=== PATIENT | male | born 1935 | race Caucasian/White ===

== ENCOUNTER 2022-10-15 23:58 | Outpatient (CLI) | payer MEDICARE, BC, SELFPAY | END 2022-10-15 23:59 | disposition home or self-care (01) | PROVIDERS: PCP Family Medicine; Visit Provider Family Medicine | DX: I95.9 Hypotension, unspecified (principal) | CPT/HCPCS: A0998 ==

== ENCOUNTER 2023-08-19 10:00 | Outpatient (RCR) | payer MEDICARE, BC, SELFPAY | END 2023-12-17 23:59 | disposition home or self-care (01) | PROVIDERS: PCP Family Medicine; Visit Provider Family Medicine | DX: M51.36 Other intervertebral disc degeneration, lumbar region (principal); M16.11 Unilateral primary osteoarthritis, right hip; Z51.89 Encounter for other specified aftercare | CPT/HCPCS: 97110; 97140; 97162 ==

== ENCOUNTER 2024-03-14 08:42 | Outpatient (CLI) | payer MEDICARE, BC, SELFPAY ==
--- OUTSIDE RECORDS SUMMARY | 2024-03-19 07:30 | XMS_ITS | Continuity of Care Document ---
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 2) Encounters from the Department of [facility] facilities going back up to 280 months. Location Location Details Encounter Type Encounter Number Reason For Visit Attending Provider ADM Date DC Date Status Disposition Source [place] [facility] Outpatient Encounter [id number] 10/29 [facility] [place] [facility] Outpatient Encounter [id number] 12/02 [facility]
--- OUTSIDE RECORDS SUMMARY | 2024-03-19 07:31 | XMS_ITS | Clinical Summary ---
Author Organization [facility] Address [place], [place] [address] Care Team Providers Care Legal Project Manager Name Role Phone PrasanthHaydeMichelle RIGGER SUPERVISOR Unavailable [phone] Lloyd Barry MD Primary Care Provider [phone] Allergies Active Allergy Reactions Criticality Noted Date Comments Codeine Constipation Low 12/21/2012 Medications Medication Sig Dispensed Refills Start Date End Date Status blood-glucose meter (ONE Red Rover SYSTEM)Indications: Type II or unspecified type diabetes mellitus without mention of complication, not stated as uncontrolled As directed. Dispense glucose meter, test strips and lancets covered by the patient insurance. Test 3 times per day. 1 Device 0 1 Active CaneIndications:DJD (degenerative joint disease) of hip As directed. For home use. Diagnosis degenerative joint disease 715.90 Duration use 99mos 1 Device 0 2 Active bzzbsehq-fax-LD-lyc open-lutein (CENTRUM SILVER MEN) 300-600-300 mcg tab Take by mouth. Pt reports taking medication every other day 0 7 Active lancets (ONETOUCH ULTRASOFT LANCETS)Indications :Type 2 diabetes mellitus without complication, without long-term current use of insulin (HC) As directed test 1 time daily. 100 Each 3 0 Active acetaminophen (TYLENOL EXTRA STRGTH) 500 mg tablet Take 1,300 mg by mouth two times daily. Max acetaminophen dose: 4000mg in 24 hrs. 0 0 Active blood sugar diagnostic (OneTouch Ultra Test) stripIndications:Ty pe 2 diabetes mellitus without complication, without long-term current use of insulin (HC) Dispense item covered by pt ins. 250.00 NIDDM type II - Test 1 time/day 100 Each 3 3 Active omeprazole (PRILOSEC) 20 mg Delayed-Release capsuleIndications: Chronic GERD Take 1 Capsule (20 mg) by mouth two times daily before meals. 180 Capsule 3 4 Active metoprolol succinate (TOPROL XL) 25 mg Sustained-Release tabletIndications:H TN (hypertension) Take 1 Tablet (25 mg) by mouth once daily. Wait until they call for this. 90 Tablet 3 4 Active allopurinoL (ZYLOPRIM) 300 mg tabletIndications:G out, unspecified cause, unspecified chronicity, unspecified site Take 1 Tablet (300 mg) by mouth once daily. 90 Tablet 3 4 Active atorvastatin (LIPITOR) 40 mg tabletIndications:O ther hyperlipidemia Take 1 Tablet (40 mg) by mouth once daily. 90 Tablet 3 4 Active finasteride (PROSCAR) 5 mg tabletIndications:B enign prostatic hyperplasia, unspecified whether lower urinary tract symptoms present Take 1 Tablet (5 mg) by mouth every morning. 90 Tablet 3 4 Active lisinopriL (PRINIVIL; ZESTRIL) 5 mg tabletIndications:H TN (hypertension) Take 1 Tablet (5 mg) by mouth once daily. 90 Tablet 3 4 Active tamsulosin (FLOMAX) 0.4 mg capsuleIndications: Essential hypertension TAKE 2 CAPSULES AT BEDTIME 180 Capsule 2 4 Active apixaban (ELIQUIS) 5 mg tabletIndications:S addle embolus of pulmonary artery with acute cor pulmonale, unspecified chronicity (HC) Take 1 Tablet (5 mg) by mouth two times daily. Eliquis 5 mg daily. 180 Tablet 4 Active apixaban (ELIQUIS) 5 mg tabletIndications:S addle embolus of pulmonary artery with acute cor pulmonale, unspecified chronicity (HC) Eliquis 5 mg daily. 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 He has been eliquis. 03/[address] Esthela Delarosa of Hematology and Oncology. It was recommended that Anatoly stay on Eliquis 5 mg daily for the rest of his life or until there is a major contraindication. 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 Anemia, unspecified 04/28/2012 Type II or unspecified type diabetes mellitus without mention of complication, not stated as uncontrolled 05/24/2008 HTN (hypertension) 05/24/2008 Overview: Updated by system to replace inactive record CAD (coronary artery disease) 05/24/2008 Mixed hyperlipidemia 05/24/2008 Encounters Date Type Department Care Team Description 03/15/2024 Refill [facility] [address] [place] [address] Lloyd Barry MD Refill Request ( Eliquis ) 02/07/2024 Orders Only [facility] Scanner 1 scan: (1-Ord) [facility], XR LUMBAR SPINE 2-3V, 02/07/2024 01/13/2024 Telephone [facility] [address] [place] [address] Brenden Aguilar, [facility] 12/22/2023 Telephone [facility] [address] [place] [address] Brenden Aguilar, [facility] from Last 3 Months Immunizations Name Administration Dates Next Due COVID-19 vaccine (KoalaDeal-Bio NTech 30mcg/0.3mL) MD LOLYV 05/21/2021,10/02/2020,09/11/2020 DT (Age < 7 years) 11/17/1999,11/12/1997 Influenza A (H1N1), Inactivated 07/23/2009 Influenza A (H1N1), Inactiva mariann (Age >=3 Years) 07/23/2009 Influenza, High-dose Inactivated 019,04/23/2018,04/22/2017,2016,04/30/2016,05/03/2012 Influenza, High-dose Quadriv alent Inactivated 03/24/2023,05/05/2022 Influenza, IIV3 (Age 6-35 mos) 04/14/2011,2009 Influenza, IIV3 (Age >=3 years) 05/05/20 13,04/30/2012,04/14/2011,2009,04/24/2009,05/23/2008,05/31/2007,1 ,05/27/2005,05/07/2004 Influenza, IIV4 05/21/2021 Pneumococcal Poly,23-Valent (Pneumovax) 04/25/2012,06/14/2002 Pneumococcal conj 13-Valent (Prevnar 13) 02/22/2015 Td (Age >=7 Years) 11/17/1999,11/12/1997 Tdap 04/25/2012,01/01/2011 Zoster (Shingrix-RZV, recombinant) 07/07/2018, Zoster (Zostavax-ZVL, live) 05/05/2013 Family History Medical History Relation Name Comments Other Brother 1 Luke lung ca at 67 Other Brother 2 Anthony tongue cancer Diabetes Father Heart Disease Father Diabetes Mother Other Mother pancreatic ca Cancer-breast Sister 1 Brittany Dementia Sister 1 Brittany Other Sister 1 Brittany liver ca Alcoholism Sister 2 Orin of this Cancer-breast Sister 3 Shannan of this d id not treat Other Son alchol abuse/ 2 006 Relation Name Status Comments Brother 1 Luke Brother 2 Anthony Father Mother Sister 1 Brittany Alive Dementia Sister 2 Orin Sister 3 Shannan Son Social History Tobacco Use Types Packs/Day Years Used Date Smoking Tobacco: Former Cigarettes 1 54 0 08/28/1948 - 09/14/2003 Passive Smoke Exposure: Past Smokeless Tobacco: Never Tobacco Cessation:Counseling Given: Not Answered Comments:stepson smokes outside Alcohol Use Standard Drinks/Week Comments Yes 2 (1 standard drink = 0.6 oz pur e alcohol) PHQ-2 Answer Date Recorded PHQ-2 TOTAL SCORE 0 09/29/2023 Social Connections Answer Date Recorded Frequency of Communication with Friends and Fami ly Not on file 03/17/2024 Alcohol Use Answer Date Recorded How often do you have a drink containing alcohol ? 3 09/29/2023 How many drinks containing a lcohol do you have on a typical day when you are drinking? 0 09/29/2023 How often do you have five or more drinks on one occasion? 0 09/29/2023 Financial Resource Strain Answer Date R ecorded Difficulty of Paying Living Expenses 3 03/16/2023 Difficulty of Paying Living Expenses Not on file 03/16/2023 Food Insecurity Answer Date Recorded Worried About Running Out of Food in the Last Ye ar 1 03/16/2023 Transportation Needs Answer Date Record ed Lack of Transportation (Medical) 1 03/16/2023 Housing Stability Answer Date Recorded Unable to Pay for Housing in the Last Year 1 03/16/2023 Sex and Gender Information Value Date Recorded Sex Assigned at Male 08/26/2020 7:29 PM DRUG CLERK Gender Identity Male 08/26/2020 7:29 PM DRUG CLERK Sexual Orientation Straight 08/26/2020 7: 29 PM DRUG CLERK Obstetrics History Last Filed Vital Signs Vital Sign Reading Time Taken Comments Blood Pressure 109/60 09/29/2023 2:31 PM DRUG CLERK Pulse 97 09/29/2023 2:31 PM DRUG CLERK Temperature 36.4 ??C (97.6 ??F) 06/30/2023 11:[address] Respiratory Rate 20 04/14/2022 10:06 AM CDT Oxygen Saturation 100% 09/29/2023 2:31 PM DRUG CLERK Inhaled Oxygen Concentration - - Weight 70.4 kg (155 lb 4.8 oz) 09/29/2023 2:31 P M DRUG CLERK Height 168 cm (5' 6.14) 09/29/2023 2:31 PM DRUG CLERK Body Mass Index 24.96 09/29/2023 2:31 PM DRUG CLERK Plan of Treatment Upcoming Encounters Date Type Department Care Team (Late st Contact Info) Description 03/29/2024 11:45 AM CDT Office Visit [facility] [address] [place] [address] Lloyd Barry MD [address] [place] [address] Health Maintenance Due Date Last Done Comments Tetanus booster 04/25/2022 04/25/2012, 03/2011, 01/01/2011, Additional history exists COVID-19 vaccine series ( season) 2023 05/21/2021, 10/02/2020, 09/11/2020 Influenza for age 65+ 03/26/2024 03/24/2023 , 05/05/2022, 05/21/2021, Additional history exists BMI (ht and wt on same day) for age 18+ 09/28/2024 09/29/2023, 09/07/2022, 08/29/2021, Additional history exists Depression screening for age 12+ 09/28/2024 09/29/2023, 09/07/2022, 08/29/2021, Additional history exists Medicare Wellness for age 65+ 09/29/2024, 09/07/2022, 08/29/2021, Additional history exists Tdap Completed 04/25/2012, 01/01/2011 Pneumococcal series for age 65+ Completed 02/22/2015, 04/25/2012, 06/14/2002 Zoster (shingles) series for age 50+ Completed 07/07/2018, 04/28/2018, 05/05/2013 Procedures Procedure Name Priority Date/Time Associated Diagnosis Comments SCAN-RADIOLOGY REPORT 02/07/2024 12:00 AM CDT from Last 3 Months Results * SCAN-RADIOLOGY REPORT (02/07/2024 12:00 AM CDT) Anatomical Region Laterality Modality Other Scanner OTHER from Last 3 Months Advance Directives Documents on File Type Date Recorded Patient Orthotic/Prosthetic Practitioner Expl anation Healthcare Directive 02/22/2018 2:33 PM HE ALTHCARE DIRECTIVE, [facility], 02/22/18 POLST 02/22/2018 2:31 PM CLAUDY ESPINOZA, 02/15/18 Care Teams Legal Project Manager Relationship Specialty Start Date End Date Lloyd Barry MD [address] [place] [address] PCP - General Family Practice 08/29/20 Michelle Rader NP Nurse Practitioner Nurse Practitioner 05/17/14
== END 2024-03-14 08:43 | disposition home or self-care (01) ==
LOC: AMB 03-19 07:29
PROVIDERS: PCP Family Medicine; Visit Provider Emergency Medicine Emergency Medical Services
DX: R07.89 Other chest pain (principal)
CPT/HCPCS: A0425; A0427

== ENCOUNTER 2024-03-14 09:26 | Emergency (ER) | payer MEDICARE, BC, SELFPAY ==
[2024-03-14] VITALS (9 sets, daily range): BP systolic 112–123; BP diastolic 57–85; PULSE 69–75; RESP 20; TEMP 36.1; O2SAT 94–100; BMI 22.6
--- NOTE | 2024-03-14 09:48 | ED.CHESTPAIN ---
HPI - Chest Pain General Chief Complaint: Chest Pain Stated Complaint: Chest pain Time Seen by Provider: 03/14/24 09:35 History of Present Illness HPI narrative: This 89-year-old male comes in because of an episode of chest pain. At the time of my visit he states he is not having any pain. This back pain began a bit more than an hour ago at approximately 8:30 a.m. He states that he was with skiing some flour to make pancakes and began to have back pain. He has a history of chronic and recurrent back pain. He stated that when this back pain flares up his legs become weak. He sat down and when he got up to ambulate he began to have chest pain. He made it to his bedroom and his brought him an aspirin and nitroglycerin. He took these and about a minute or 2 after nitroglycerin was taken his chest pain was gone. He does have a history of a myocardial infarction that occurred about a year ago. He does not have any chest pain recently with exertional activities. Today in addition to chest pain he did have some shortness of breath and nausea. There is no diaphoresis or vomiting. He is taking Eliquis but because of cost he is only taking half of the dosage that is recommended. He arrives here with normal vital signs. Related Data Home Medications ?Medication ?Instructions ?Recorded ?Confirmed allopurinol 300 mg tablet 300 mg PO DAILY 02/07/24 02/07/24 apixaban 5 mg tablet (Eliquis) 2.5 mg PO BID 02/07/24 02/07/24 atorvastatin 40 mg tablet 40 mg PO DAILY 02/07/24 02/07/24 finasteride 5 mg tablet 5 mg PO DAILY 02/07/24 02/07/24 lisinopril 5 mg tablet 5 mg PO DAILY 02/07/24 02/07/24 metoprolol succinate 25 mg 25 mg PO DAILY 02/07/24 02/07/24 tablet,extended release 24 hr omeprazole 20 mg capsule,delayed 20 mg PO BID 02/07/24 02/07/24 release tamsulosin 0.4 mg capsule 0.8 mg PO DAILY 02/07/24 02/07/24 Allergies Allergy/AdvReac Type Severity Reaction Status Date / Time No Known Drug Allergies Allergy Verified 03/14/24 09:32 Review of Systems Status of ROS Reports: 10 or more systems reviewed and unremarkable except as noted in History and below Narrative Constitutional: No fevers, no weight gain or loss. Eyes: No discharge. No vision changes. HENT: No congestion, no sore throat, no ear pain. Cardiovascular: No palpitations. Chest pain as described above. Respiratory: No shortness of breath, no wheezes, no cough. Gastrointestinal: No abdominal pain, no vomiting, no diarrhea. Genitourinary: No dysuria, no hematuria. Musculoskeletal: Normal range of motion. Chronic back pain with an acute flare up. Skin: No rashes, no pruritis. Neurological: No dizziness, weakness, sensory change, speech change. Endo/Heme/Allergies: No bruising or bleeding. No polydipsia. Pysch: no suicidality, no anxiety, no insomnia. All other systems reviewed and are negative. [facility] Medical History (Updated 03/14/24 @ 12:42 by Pola Cardenas MD) Pulmonary edema ?J81.1 - Chronic pulmonary edema (ICD-10) Social History Smoking Status: Never smoker Do you use any of these nicotine containing products: None How often do you have a drink containing alcohol: never AUDIT-C Alcohol total score: 0 Non-prescribed substance use: denies use Exam Narrative Exam Narrative: Constitutional: Well-developed, well-nourished, no acute distress. HEENT: Normocephalic, atraumatic. Neck: Normal range of motion. Nontender. Supple. Heart: Regular. No murmurs. Normal rate. Intact distal pulses. Lungs: Clear to auscultation. No chest discomfort. No wheezes, rhonchi, or rales. Abdomen: Normal bowel sounds. Nontender. No rebound tenderness. Genitalia: Deferred. Back: No midline tenderness. Normal range of motion. Extremities: Normal range of motion. No injury. Skin: Intact. No rash. Warm. No erythema or pallor. Neurologic: No altered sensation. No weakness. Alert and oriented. Psychiatric: No suicidality. No anxiety or depression. No insomnia. Nursing notes and vitals signs are reviewed. Const Vital Signs, click to edit/add: Vital Signs - 24 hr 03/14/24 09:28 03/14/24 09:35 03/14/24 09:45 Temperature 97 F L Pulse Rate 69 74 Pulse Rate [Apical] 75 Respiratory Rate 20 Blood Pressure Blood Pressure [Left Upper Arm] 123/57 L Pulse Oximetry 98 99 100 Oxygen Delivery Method Room Air 03/14/24 10:00 03/14/24 10:15 03/14/24 10:30 Temperature Pulse Rate 69 69 69 Pulse Rate [Apical] Respiratory Rate Blood Pressure Blood Pressure [Left Upper Arm] Pulse Oximetry 94 100 98 Oxygen Delivery Method 03/14/24 10:45 03/14/24 10:48 03/14/24 11:00 Temperature Pulse Rate 71 70 74 Pulse Rate [Apical] Respiratory Rate Blood Pressure 112/85 Blood Pressure [Left Upper Arm] Pulse Oximetry 99 98 99 Oxygen Delivery Method Course Vital Signs Vital signs: Initial Vital Signs Temperature 97 F L 03/14/24 09:28 Temperature Source Temporal Artery Scan 03/14/24 09:28 Pulse Rate 75 03/14/24 09:28 Pulse Rhythm Regular 03/14/24 09:28 Respiratory Rate 20 03/14/24 09:28 Blood Pressure 123/57 L 03/14/24 09:28 Blood Pressure Mean 79 03/14/24 09:28 Blood Pressure Position Semi-Fowlers 03/14/24 09:28 Pulse Oximetry 98 03/14/24 09:28 Oxygen Delivery Method Room Air 03/14/24 09:28 Vital Signs Temperature 97 F L 03/14/24 09:28 Pulse Rate 75 03/14/24 09:28 Respiratory Rate 20 03/14/24 09:28 Blood Pressure 123/57 L 03/14/24 09:28 Pulse Oximetry 98 03/14/24 09:28 Oxygen Delivery Method Room Air 03/14/24 09:28 Temperature 97 F L 03/14/24 09:28 Pulse Rate 74 03/14/24 11:00 Respiratory Rate 20 03/14/24 09:28 Blood Pressure 112/85 03/14/24 10:48 Pulse Oximetry 99 03/14/24 11:00 Oxygen Delivery Method Room Air 03/14/24 09:28 MDM - Chest Pain MDM Narrative Medical decision making narrative: This patient comes in reporting an episode of back pain that was followed by chest discomfort as described above. EKG here shows no specific ST or T-wave abnormalities. Additionally troponin returns at 0 initially. Repeat troponin about 3-1/2 hours after the pain occurred also returns at 0. This patient seems to have reasonable exercise tolerance but does have a history of a myocardial infarction that occurred about a year ago or so. Today his episode of chest pain occurred after having back pain which is chronic for him and did not involve any particular significant physical activity. This patient is okay to be discharged home. He has been taking half of his recommended dose for of Eliquis because he says it is an expensive medication. I encouraged him to take it as prescribed and he agrees to do so now. He is encouraged to follow-up with his primary physician and return if worsening. Lab Data Labs: Lab Results 03/14/24 03/14/24 03/14/24 Range/Units 09:47 09:57 11:47 WBC 6.30 (4.50-11.00) K/uL RBC 3.09 L (4.30-5.90) m/uL Hgb 9.2 L (13.5-17.5) gm/dL Hct 28.6 L (37.0-53.0) % MCV 93 (80-100) fL MCH 30 (26-34) pg MCHC 32 (32-36) gm/dL RDW Coeff of Skylar 15.9 H (11.5-15.5) % Plt Count 228 (140-440) K/uL Neut % (Auto) 62.4 (42.0-72.0) % Lymph % (Auto) 24.1 (20-44) % Dickinson % (Auto) 9.4 (0.0-11.0) % Eos % (Auto) 3.3 (0.0-7.0) % Baso % (Auto) 0.6 (0.0-3.0) % Neut # (Auto) 3.93 (1.7-7.0) K/uL Lymph # (Auto) 1.52 (0.90-2.90) K/uL Dickinson # (Auto) 0.60 (0.00-0.90) K/UL Eos # (Auto) 0.21 (0.00-0.50) K/uL Baso # (Auto) 0.04 (0.00-0.30) K/uL Abs Immat Gran (auto) 0.01 (0.00-0.30) K/uL Imm/Tot Granulo (auto) 0.2 % Sodium 135 (135-149) mmol/L Potassium 4.0 (3.6-5.1) mmol/L Chloride 103 (96-114) mmol/L Carbon Dioxide 24 (20-32) mmol/L Anion Gap 8 (7-15) mEq/L BUN 16 (7-30) mg/dL Creatinine 1.0 (0.5-1.5) mg/dL Estimated Creat Clear 45.86 Estimated GFR 72 ml/min Glucose 115 (60-115) mg/dL Calcium 9.5 (8.4-10.6) mg/dL POC Troponin I 0.00 L 0.00 L (0.01-0.04) ng/ml ECG Data Attestation: I personally reviewed and interpreted this ECG as follows: Interpretation: Normal sinus rhythm. Rate is 78 beats per minute. There is a right bundle branch block. Biphasic T-waves in the anterior leads. Discharge Plan Discharge Clinical Impression: Atypical chest pain Patient Disposition: Home w/ Parent or Adult Condition: Improved Additional Instructions: Continue current plans. Follow up with primary physician. Return if symptoms are recurrent or worsening. Prescriptions: No Action finasteride 5 mg tablet 5 mg PO DAILY lisinopril 5 mg tablet 5 mg PO DAILY atorvastatin 40 mg tablet 40 mg PO DAILY Eliquis 5 mg tablet 2.5 mg PO BID metoprolol succinate 25 mg tablet extended release 24 hr 25 mg PO DAILY allopurinol 300 mg tablet 300 mg PO DAILY tamsulosin 0.4 mg capsule 0.8 mg PO DAILY omeprazole 20 mg capsule,delayed release(DR/EC) 20 mg PO BID Follow Up/Referrals: Lloyd Barry MD [Primary Care Provider] - Stand Alone Forms: [address] Info Instructions
[2024-03-14 10:05] LABS: Basophils Absolute Auto 0.04 K/uL (0.00-0.30); Basophils Percent Auto 0.6 % (0.0-3.0); Eosinophils Absolute Auto 0.21 K/uL (0.00-0.50); Eosinophils Percent Auto 3.3 % (0.0-7.0); Hematocrit 28.6 % (37.0-53.0); Hemoglobin* 9.2 gm/dL (13.5-17.5); Immature Granulocytes Abs Auto 0.01 K/uL (0.00-0.30); Immature Granulocytes Pct Auto 0.2 %; Lymphocytes Absolute Auto 1.52 K/uL (0.90-2.90); Lymphocytes Percent Auto 24.1 % (20-44); Mean Corpuscular HGB Conc 32 gm/dL (32-36); Mean Corpuscular Hemoglobin 30 pg (26-34); Mean Corpuscular Volume 93 fL (80-100); Monocytes Percent Auto 9.4 % (0.0-11.0); Neutrophils Absolute Auto 3.93 K/uL (1.7-7.0); Neutrophils Percent Auto 62.4 % (42.0-72.0); Platelet Count* 228 K/uL (140-440); RDW Coefficient of Variation % 15.9 % (11.5-15.5); Red Blood Count 3.09 m/uL (4.30-5.90)
[2024-03-14 10:17] LABS: Chloride* 103 mmol/L (96-114); Slide Review Reflex No
[2024-03-14 10:18] LABS: Sodium* 135 mmol/L (135-149)
[2024-03-14 10:20] LABS: Est. Creatinine Clearance* 45.86; Estimated Glomerular Filt Rate 72 ml/min
[2024-03-14 10:21] LABS: Anion Gap 8 mEq/L (7-15); Blood Urea Nitrogen* 16 mg/dL (7-30); Calcium* 9.5 mg/dL (8.4-10.6); Carbon Dioxide* 24 mmol/L (20-32); Glucose* 115 mg/dL (60-115)
== END 2024-03-14 12:57 | disposition home or self-care (01) ==
PROVIDERS: Emergency Provider Emergency Medicine Emergency Medical Services; PCP Family Medicine
DX: R07.89 Other chest pain (principal)
CPT/HCPCS: 36415; 80048; 84484; 85025; 93005; 99284

== ENCOUNTER 2024-05-29 12:30 | Outpatient (RCR) | payer MEDICARE, BC, SELFPAY | END 2024-09-25 14:51 | disposition home or self-care (01) | PROVIDERS: PCP Family Medicine; Visit Provider Family Medicine | DX: M51.36 Other intervertebral disc degeneration, lumbar region (principal); M41.55 Other secondary scoliosis, thoracolumbar region; R26.89 Other abnormalities of gait and mobility; Z51.89 Encounter for other specified aftercare | CPT/HCPCS: 97110; 97140; 97162 ==

== ENCOUNTER 2024-09-21 10:09 | Outpatient (CLI) | payer MEDICARE, BC, SELFPAY | END 2024-09-21 10:10 | disposition home or self-care (01) | PROVIDERS: PCP Family Medicine; Visit Provider Emergency Medicine | DX: S29.9XXA Unspecified injury of thorax, initial encounter (principal); S09.90XA Unspecified injury of head, initial encounter; W10.9XXA Fall (on) (from) unspecified stairs and steps, initial encounter; Y92.008 Other place in unspecified non-institutional (private) residence as the place of occurrence of the external cause | CPT/HCPCS: A0425; A0427 ==

== ENCOUNTER 2024-09-21 11:02 | Inpatient (IN) | payer MEDICARE, BC, SELFPAY ==
[2024-09-21] VITALS (54 sets, daily range): BP systolic 96–148; BP diastolic 43–77; PULSE 81–104; RESP 10–27; TEMP 35.9–37; O2SAT 90–100; BMI 22.0
--- NOTE | 2024-09-21 11:41 | ED.FALL ---
HPI - Fall General Date Seen: 09/21/24 Chief Complaint: Fall/Minor Trauma Stated Complaint: Weakness, fall Source: patient and EMS Mode of arrival: EMS Limitations: no limitations History of Present Illness HPI Narrative: Patient is an 89-year-old male presenting via EMS after a fall. He states for the past 4 weeks he will have intermittent episodes where his legs just give out on him. He is set up to see his primary care provider this Wednesday for this issue. Has not been evaluated for it before he states. States he was walking into his house from the garage when his legs gave out causing the fall backwards from the 2nd step and hitting his head on a bracket of a table and then the cement ground. Currently he he is complaining about left flank pain and he states he thinks he broke a rib. Was given some pain medication via EMS in states that has helped. Admits to chronic hip pain and thinks it seems worse after the fall. Does states he short of breath but this has been a chronic issue since he had pulmonary edema requiring him to be airlifted to [facility] [place] 4 months ago. Does not seem any worse currently. Does admit to drinking 3-5 shots of alcohol every day. Denies any neck pain currently. Denies abdominal pain, fevers, chills. No other injuries he states. 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 Related Data Home Medications ?Medication ?Instructions ?Recorded ?Confirmed allopurinol 300 mg tablet 300 mg PO DAILY 02/07/24 09/21/24 apixaban 5 mg tablet (Eliquis) 2.5 mg PO BID 02/07/24 09/21/24 atorvastatin 40 mg tablet 40 mg PO DAILY 02/07/24 09/21/24 finasteride 5 mg tablet 5 mg PO DAILY 02/07/24 09/21/24 lisinopril 5 mg tablet 5 mg PO DAILY 02/07/24 09/21/24 metoprolol succinate 25 mg 25 mg PO DAILY 02/07/24 09/21/24 tablet,extended release 24 hr omeprazole 20 mg capsule,delayed 20 mg PO BID 02/07/24 09/21/24 release tamsulosin 0.4 mg capsule 0.8 mg PO DAILY 02/07/24 09/21/24 Allergies Allergy/AdvReac Type Severity Reaction Status Date / Time No Known Drug Allergies Allergy Verified 09/21/24 12:56 Review of Systems Status of ROS: Reports: 10 or more systems reviewed and unremarkable except as noted in History and below [facility] Medical History Pulmonary edema ?J81.1 - Chronic pulmonary edema (ICD-10) Social History Smoking Status: Former smoker Do you use any of these nicotine containing products: None How often do you have a drink containing alcohol: 4 or more times a week How many standard drinks containing alcohol do you have on a typical day: 3 or 4 How often do you have six or more drinks on one occasion: Never AUDIT-C Alcohol total score: 5 Non-prescribed substance use: denies use Exam Narrative: Exam Narrative: Const: Well-nourished, Well-developed, in mild distress Eyes: PERRL, no conjunctival injection, and symmetrical lids HENT: Atraumatic external nose and ears. Moist mucous membranes. Neck: Symmetric, trachea midline, No thyromegaly. CVS: RRR, No murmurs or gallops. Peripheral pulses 2+ and equal in all extremities RESP: Unlabored respiratory effort. Clear to auscultation bilaterally. GI: Nontender/Nondistended, No rebound or guarding. MSK:Extremities w/o deformity, Normal Active ROM, right posterior hip pain and left posterior paraspinal pain around rib 10 Skin: Warm, Dry. No rashes or lesions. Neuro: Normal Muscle tone, No focal neurological deficits. Psych: Awake, Alert, & Oriented x3. Appropriate mood and affect. Const: Vital Signs, click to edit/add: Vital Signs - 24 hr 09/21/24 10:52 09/21/24 11:03 09/21/24 11:04 Temperature 97.2 F L Pulse Rate 91 89 Pulse Rate [Right Pulse Oximeter] 94 Respiratory Rate 18 Blood Pressure 102/45 L Blood Pressure [Ri ght Upper Arm] 102/45 L Pulse Oximetry 100 93 90 Oxygen Delivery Me thod Room Air 09/21/24 11:15 09/21/24 11:15 09/21/24 11:16 Temperature Pulse Rate 100 100 98 Pulse Rate [Right Pulse Oximeter] Respiratory Rate Blood Pressure 113/54 L 113/54 L Blood Pressure [Ri ght Upper Arm] Pulse Oximetry 100 100 100 Oxygen Delivery Me thod 09/21/24 11:30 09/21/24 11:31 09/21/24 11:45 Temperature Pulse Rate 92 87 98 Pulse Rate [Right Pulse Oximeter] Respiratory Rate 23 Blood Pressure 96/43 L Blood Pressure [Ri ght Upper Arm] Pulse Oximetry 100 99 100 Oxygen Delivery Me thod 09/21/24 12:00 09/21/24 12:02 09/21/24 12:03 Temperature Pulse Rate 90 88 Pulse Rate [Right Pulse Oximeter] Respiratory Rate 15 20 19 Blood Pressure 111/59 L Blood Pressure [Ri ght Upper Arm] Pulse Oximetry 100 100 Oxygen Delivery Me thod 09/21/24 12:45 09/21/24 13:00 09/21/24 13:02 Temperature Pulse Rate 104 H 92 99 Pulse Rate [Right Pulse Oximeter] Respiratory Rate 19 15 Blood Pressure 114/53 L Blood Pressure [Ri ght Upper Arm] Pulse Oximetry 100 100 Oxygen Delivery Me thod 09/21/24 13:15 09/21/24 13:30 09/21/24 13:32 Temperature Pulse Rate 94 91 93 Pulse Rate [Right Pulse Oximeter] Respiratory Rate 27 H 12 12 Blood Pressure 126/54 L Blood Pressure [Ri ght Upper Arm] Pulse Oximetry 100 98 96 Oxygen Delivery Me thod 09/21/24 13:39 09/21/24 13:43 09/21/24 13:45 Temperature 98.1 F Pulse Rate 92 90 87 Pulse Rate [Right Pulse Oximeter] Respiratory Rate 16 15 Blood Pressure 116/47 L 116/47 L Blood Pressure [Ri ght Upper Arm] Pulse Oximetry 94 91 92 Oxygen Delivery Me thod Room Air 09/21/24 13:47 09/21/24 14:00 09/21/24 14:00 Temperature 98.0 F Pulse Rate 90 91 96 Pulse Rate [Right Pulse Oximeter] Respiratory Rate 12 16 16 Blood Pressure 107/45 L 117/51 L Blood Pressure [Ri ght Upper Arm] Pulse Oximetry 90 100 Oxygen Delivery Me thod Room Air 09/21/24 14:02 09/21/24 14:03 09/21/24 14:15 Temperature Pulse Rate 88 87 82 Pulse Rate [Right Pulse Oximeter] Respiratory Rate 13 Blood Pressure 117/51 L Blood Pressure [Ri ght Upper Arm] Pulse Oximetry 97 92 95 Oxygen Delivery Me thod 09/21/24 14:17 09/21/24 14:17 09/21/24 14:30 Temperature 98.1 F Pulse Rate 89 89 88 Pulse Rate [Right Pulse Oximeter] Respiratory Rate 16 Blood Pressure 113/52 L 113/52 L 118/55 L Blood Pressure [Ri ght Upper Arm] Pulse Oximetry 94 94 100 Oxygen Delivery Me thod Room Air 09/21/24 14:30 09/21/24 14:32 Temperature Pulse Rate 88 87 Pulse Rate [Right Pulse Oximeter] Respiratory Rate 13 18 Blood Pressure 118/55 L Blood Pressure [Ri ght Upper Arm] Pulse Oximetry 96 100 Oxygen Delivery Me thod Course Vital Signs Vital signs: Initial Vital Signs Temperature 97.2 F L 09/21/24 10:52 Temperature Source Temporal Artery Scan 09/21/24 10:52 Pulse Rate 94 09/21/24 10:52 Pulse Rhythm Regular 09/21/24 10:52 Pulse Strength 3+ Normal 09/21/24 10:52 Respiratory Rate 18 09/21/24 10:52 Blood Pressure 102/45 L 09/21/24 10:52 Blood Pressure Mean 64 L 09/21/24 10:52 Pulse Oximetry 100 09/21/24 10:52 Oxygen Delivery Method Room Air 09/21/24 10:52 Vital Signs Temperature 97.2 F L 09/21/24 10:52 Pulse Rate 94 09/21/24 10:52 Respiratory Rate 18 09/21/24 10:52 Blood Pressure 102/45 L 09/21/24 10:52 Pulse Oximetry 100 09/21/24 10:52 Oxygen Delivery Method Room Air 09/21/24 10:52 Temperature 98.1 F 09/21/24 14:30 Pulse Rate 87 09/21/24 14:32 Respiratory Rate 18 09/21/24 14:32 Blood Pressure 118/55 L 09/21/24 14:32 Pulse Oximetry 100 09/21/24 14:32 Oxygen Delivery Method Room Air 09/21/24 14:30 Medications Administered Medications: Generic Name Dose Route Start Last Admin Trade Name Freq PRN Reason Stop Dose Admin Sodium Chloride 250 ml 09/21/24 12:15 09/21/24 13:39 0.9 % Sodium Chloride 500 Ml IV 09/22/24 23:59 250 ml ONCE PRN Administration Discontinued Medications Generic Name Dose Route Start Last Admin Trade Name Luis Fernando PRN Reason Stop Dose Admin Morphine Sulfate 4 mg 09/21/24 13:02 09/21/24 13:13 Morphine 4 Mg/Ml Inj IVP 09/21/24 13:03 4 mg ONCE ONE Administration MDM - Fall MDM Narrative Medical decision making narrative: Patient is an 89-year-old male presenting after a fall. He has a pain to his right hip in left posterior ribs. Considering he is on a blood thinner his overall symptoms I will do a proctor scan to exam in his chest abdomen and pelvis along with CT his head and cervical spine. Will could be causing his weakness is pretty broad expression he considering he is admitted alcoholic. Order a COVID/flu/RSV, CBC, magnesium, CMP, EKG and troponin. His shortness of breath seems to be chronic him a concern for pulmonary embolism is low. CBC came back with a critical low hemoglobin of 4.9. It was 9.2 back in February 2024. Will do iron panels. It is a normocytic anemia. Stool occult test was ordered along with a type and screen. Iron panel showed a iron deficiency anemia. He is stool occult positive. The stool was in dark brown consistent with slight melena. I do believe he is having a chronic upper GI bleed. This is likely the cause of his symptoms. He will receive 2 units of packed red cells. CT scan of his head and neck showed no acute concerning abnormalities. CT scan of the abdomen pelvis shows an acute nondisplaced 8th rib fracture consistent with where his pain is. I spoke to the morning hospitalist and he initially recommended transfer if possible. I spoke to several hospitals in no one had available beds. I did find out we are able to do an endoscopy tomorrow at 14:30. Due to no bed availability and the patient being otherwise stable while we were able to get a DOS could be tomorrow patient will stay here in [facility]. The hospitalist accepted him for admission Lab Data Labs: Lab Results 09/21/24 09/21/24 09/21/24 Range/Units 11:33 11:35 11:58 WBC 6.07 (4.50-11.00) K/uL RBC 2.10 L (4.30-5.90) m/uL Hgb 4.9 L* (13.5-17.5) gm/dL Hct 17.2 L (37.0-53.0) % MCV 82 (80-100) fL MCH 23 L (26-34) pg MCHC 29 L (32-36) gm/dL RDW Coeff of Skylar 18.6 H (11.5-15.5) % Plt Count 309 (140-440) K/uL Neut % (Auto) 78.1 H (42.0-72.0) % Lymph % (Auto) 11.9 L (20-44) % Trimble % (Auto) 8.1 (0.0-11.0) % Eos % (Auto) 1.2 (0.0-7.0) % Baso % (Auto) 0.5 (0.0-3.0) % Neut # (Auto) 4.70 (1.7-7.0) K/uL Lymph # (Auto) 0.70 L (0.90-2.90) K/uL Trimble # (Auto) 0.50 (0.00-0.90) K/UL Eos # (Auto) 0.07 (0.00-0.50) K/uL Baso # (Auto) 0.03 (0.00-0.30) K/uL Abs Immat Gran (auto) 0.01 (0.00-0.30) K/uL Imm/Tot Granulo (auto) 0.2 % Sodium 134 L (135-149) mmol/L Potassium 4.6 (3.6-5.1) mmol/L Chloride 103 (96-114) mmol/L Carbon Dioxide 22 (20-32) mmol/L Anion Gap 9 (7-15) mEq/L BUN 23 (7-30) mg/dL Creatinine 1.0 (0.5-1.5) mg/dL Estimated Creat Clear 44.55 Estimated GFR 72 ml/min Glucose 243 H (60-115) mg/dL Calcium 8.9 (8.4-10.6) mg/dL Magnesium 2.0 (1.5-2.6) mg/dL Iron 14 L (49-181) ug/dL TIBC 436 (261-462) ug/dL % Saturation 3 L (20-50) % Total Bilirubin 0.3 (0.1-1.5) mg/dL Direct Bilirubin 0.2 (0.0-0.5) mg/dL AST 17 (12-35) U/L ALT 13 (4-50) U/L Alkaline Phosphatase 86 (40-150) U/L Troponin I < 0.01 L (0.01-0.04) ng/mL Total Protein 5.5 L (6.0-8.3) g/dL Albumin 3.7 (3.3-5.0) g/dL Stool Occult Blood (Negative) SARS-CoV-2 (PCR) Negative SARS-CoV-2 (Negative) Influenza Type A (PCR) Negative PCR FLU A (Negative) Influenza Type B (PCR) Negative PCR FLU B (Negative) RSV (PCR) Negative PCR RSV (Negative) Lab Acknowledgement Test Added POC Creatinine 1.1 (0.6-1.3) mg/dl POC Troponin I 0.00 L (0.01-0.04) ng/ml Blood Type O Positive Antibody Screen NEGATIVE Crossmatch (AHG) See Detail 09/21/24 Range/Units 12:10 WBC (4.50-11.00) K/uL RBC (4.30-5.90) m/uL Hgb (13.5-17.5) gm/dL Hct (37.0-53.0) % MCV (80-100) fL MCH (26-34) pg MCHC (32-36) gm/dL RDW Coeff of Skylar (11.5-15.5) % Plt Count (140-440) K/uL Neut % (Auto) (42.0-72.0) % Lymph % (Auto) (20-44) % Trimble % (Auto) (0.0-11.0) % Eos % (Auto) (0.0-7.0) % Baso % (Auto) (0.0-3.0) % Neut # (Auto) (1.7-7.0) K/uL Lymph # (Auto) (0.90-2.90) K/uL Trimble # (Auto) (0.00-0.90) K/UL Eos # (Auto) (0.00-0.50) K/uL Baso # (Auto) (0.00-0.30) K/uL Abs Immat Gran (auto) (0.00-0.30) K/uL Imm/Tot Granulo (auto) % Sodium (135-149) mmol/L Potassium (3.6-5.1) mmol/L Chloride (96-114) mmol/L Carbon Dioxide (20-32) mmol/L Anion Gap (7-15) mEq/L BUN (7-30) mg/dL Creatinine (0.5-1.5) mg/dL Estimated Creat Clear Estimated GFR ml/min Glucose (60-115) mg/dL Calcium (8.4-10.6) mg/dL Magnesium (1.5-2.6) mg/dL Iron (49-181) ug/dL TIBC (261-462) ug/dL % Saturation (20-50) % Total Bilirubin (0.1-1.5) mg/dL Direct Bilirubin (0.0-0.5) mg/dL AST (12-35) U/L ALT (4-50) U/L Alkaline Phosphatase (40-150) U/L Troponin I (0.01-0.04) ng/mL Total Protein (6.0-8.3) g/dL Albumin (3.3-5.0) g/dL Stool Occult Blood Positive (Negative) SARS-CoV-2 (PCR) (Negative) Influenza Type A (PCR) (Negative) Influenza Type B (PCR) (Negative) RSV (PCR) (Negative) Lab Acknowledgement POC Creatinine (0.6-1.3) mg/dl POC Troponin I (0.01-0.04) ng/ml Blood Type Antibody Screen Crossmatch (AHG) Imaging Data CT scan head: Attestation: I have reviewed the pertinent imaging results. Radiologist's impression: 1. No intracranial bleed or mass effect. 2. Cerebral atrophy with nonspecific white matter disease, likely microangiopathy. 3. Opacified right maxillary sinus extending to the right ostiomeatal unit. This has mild convexity of the differential diagnosis includes chronic sinusitis or sinonasal polyposis. Appearance is similar to the 2019 exam. Please note that all CT scans at this facility use dose modulation, iterative reconstruction, and/or weight-based dosing when appropriate to reduce radiation dose to as low as reasonably achievable. Dictated by Herrera Krause MD @ 09/21/2024 1:07:55 PM 1. No intracranial bleed or mass effect. 2. Cerebral atrophy with nonspecific white matter disease, likely microangiopathy. 3. Opacified right maxillary sinus extending to the right ostiomeatal unit. This has mild convexity of the differential diagnosis includes chronic sinusitis or sinonasal polyposis. Appearance is similar to the 2019 exam. Please note that all CT scans at this facility use dose modulation, iterative reconstruction, and/or weight-based dosing when appropriate to reduce radiation dose to as low as reasonably achievable. Dictated by Herrera Krause MD @ 09/21/2024 1:07:[address] scan cervical spine: Attestation: I have reviewed the pertinent imaging results. Radiologist's impression: Multilevel degenerative changes without evidence of cervical spine fracture. Please note that all CT scans at this facility use dose modulation, iterative reconstruction, and/or weight-based dosing when appropriate to reduce radiation dose to as low as reasonably achievable. Dictated by Herrera Krause MD @ 09/21/2024 1:11:[address] Chest/Ab/Pelvis: Attestation: I have reviewed the pertinent imaging results. Radiologist's impression: 1. Nondisplaced acute left 8th rib fracture posterolaterally. 2. No evidence of solid organ injury or intraperitoneal hematoma. 3. Low left axillary lymphadenopathy measuring 11 millimeters. 4. Other incidental findings as detailed above. Please note that all CT scans at this facility use dose modulation, iterative reconstruction, and/or weight-based dosing when appropriate to reduce radiation dose to as low as reasonably achievable. Dictated by Herrera Krause MD @ 09/21/2024 1:22:41 PM ECG Data Attestation: I personally reviewed and interpreted this ECG as follows: Discharge Plan Discharge Clinical Impression: Weakness Anemia Qualifiers: Anemia type: iron deficiency Iron deficiency anemia type: unspecified iron deficiency Qualified Code(s): D50.9 - Iron deficiency anemia, unspecified Closed rib fracture Qualifiers: Encounter type: initial encounter Rib fracture type: single rib Laterality: left Qualified Code(s): S22.32XA - Fracture of one rib, left side, initial encounter for closed fracture Patient Disposition: Admitted As Observation Condition: Stable Prescriptions: No Action finasteride 5 mg tablet 5 mg PO DAILY lisinopril 5 mg tablet 5 mg PO DAILY atorvastatin 40 mg tablet 40 mg PO DAILY Eliquis 5 mg tablet 2.5 mg PO BID metoprolol succinate 25 mg tablet extended release 24 hr 25 mg PO DAILY allopurinol 300 mg tablet 300 mg PO DAILY tamsulosin 0.4 mg capsule 0.8 mg PO DAILY omeprazole 20 mg capsule,delayed release(DR/EC) 20 mg PO BID Follow Up/Referrals: Lloyd Barry MD [Primary Care Provider] -
[2024-09-21 11:46] LABS: Creatinine, Point-of-Care* 1.1 mg/dl (0.6-1.3)
[2024-09-21 11:48] LABS: Basophils Absolute Auto 0.03 K/uL (0.00-0.30); Basophils Percent Auto 0.5 % (0.0-3.0); Eosinophils Absolute Auto 0.07 K/uL (0.00-0.50); Eosinophils Percent Auto 1.2 % (0.0-7.0); Hematocrit 17.2 % (37.0-53.0); Immature Granulocytes Abs Auto 0.01 K/uL (0.00-0.30); Immature Granulocytes Pct Auto 0.2 %; Lymphocytes Percent Auto 11.9 % (20-44); Mean Corpuscular HGB Conc 29 gm/dL (32-36); Mean Corpuscular Hemoglobin 23 pg (26-34); Mean Corpuscular Volume 82 fL (80-100); Monocytes Percent Auto 8.1 % (0.0-11.0); Neutrophils Percent Auto 78.1 % (42.0-72.0); Platelet Count* 309 K/uL (140-440); RDW Coefficient of Variation % 18.6 % (11.5-15.5); White Blood Count* 6.07 K/uL (4.50-11.00)
[2024-09-21 11:56] LABS: Hemoglobin* 4.9 gm/dL (13.5-17.5); Slide Review Reflex No
[2024-09-21 12:11] LABS: Chloride* 103 mmol/L (96-114)
[2024-09-21 12:12] LABS: Potassium* 4.6 mmol/L (3.6-5.1); Sodium* 134 mmol/L (135-149)
[2024-09-21 12:14] LABS: Blood Urea Nitrogen* 23 mg/dL (7-30); Est. Creatinine Clearance* 44.55; Estimated Glomerular Filt Rate 72 ml/min
[2024-09-21 12:15] LABS: Anion Gap 9 mEq/L (7-15); Calcium* 8.9 mg/dL (8.4-10.6); Carbon Dioxide* 22 mmol/L (20-32); Glucose* 243 mg/dL (60-115)
[2024-09-21 12:18] LABS: Albumin* 3.7 g/dL (3.3-5.0)
[2024-09-21 12:20] LABS: Bilirubin Direct* 0.2 mg/dL (0.0-0.5); Bilirubin Total* 0.3 mg/dL (0.1-1.5); Iron* 14 ug/dL (49-181)
[2024-09-21 12:21] LABS: Alanine Aminotransferase* 13 U/L (4-50); Alkaline Phosphatase* 86 U/L (40-150); Aspartate Amino Transferase* 17 U/L (12-35); Total Protein* 5.5 g/dL (6.0-8.3)
[2024-09-21 12:22] LABS: PCR FLU A Negative PCR FLU A (Negative); PCR FLU B Negative PCR FLU B (Negative); PCR RSV Negative PCR RSV (Negative); SARS PCR* Negative SARS-CoV-2 (Negative)
[2024-09-21 12:27] LABS: Fecal Occult Blood* Positive (Negative)
[2024-09-21 12:28] LABS: Troponin I* < 0.01 ng/mL (0.01-0.04)
[2024-09-21 12:30] LABS: Percent Iron Saturation 3 % (20-50); Total Iron Binding Capacity 436 ug/dL (261-462)
[2024-09-21] MEDS: MORPHINE 4 MG/ML INJ IVP (13:13)
[2024-09-21] MEDS: 0.9 % SODIUM CHLORIDE 500 ML 250 ML IV (13:39)
--- NOTE | 2024-09-21 16:13 | PM.IMHP1 ---
Hospitalist- H&P: [facility] History of Present Illness Date Seen: 09/21/24 Chief complaint: PE Narrative: Dany Hook is a 89 year old male with history of massive pulmonary embolism on anticoagulation, heart failure, alcohol use disorder, coronary artery disease admitted through the emergency department after a fall at home. Patient reports months of progressive exertional dyspnea and leg weakness. He reports he is getting the point where his legs give out when he is just walking. He now reports he can walk about 25 ft before he has to stop to catch his breath. Today he fell and landed on his left back and head. In the emergency department he was found to have an acute left 8th rib fracture. He was also found to have a hemoglobin of 4.9 with an MCV of 82. He had Hemoccult-positive stool. In reviewing his records I see is hemoglobin on 03/14/2024 was 9.2 and his hemoglobin in August of 2023 was 11.2. He has had mild anemia for the last 5 years with hemoglobin ranging from 9.4-13.5. He does report that he has had occasions where he strains to have a bowel movement and then has bright red blood on the toilet tissue. He does not ever recall seeing bloody stools, maroon stools, melanotic stools. He is on Eliquis. He was hospitalized at [facility] for a massive saddle embolism about 5 years ago. He has a longstanding history of alcohol abuse. He tells me he drinks 1 L of whiskey per week. He has been advised to stop drinking. He reports weight loss of about 50 lb in the last year. He reports a poor appetite. His family reports he is not eating much. In reviewing past medical records I see his weight in clinic in June 2023 was 69.7 kg and in 03/29/2024 was 64.9 kg. His weight in our records was 66.2 kg in January 2024 and 63.5 kg in February of 2020 for an today his weight is 61.7 kg. That appears to be an unintentional weight loss of 8 kg since June 2023. Review of Systems Narrative: He reports urinary frequency and hesitancy. He is on Flomax and finasteride. [facility] Medical History (Updated 09/21/24 @ 17:08 by Suleiman Lafleur MD) Malnutrition ?E46 - Unspecified protein-calorie malnutrition (ICD-10) Alcohol use disorder ?F10.90 - Alcohol use, unspecified, uncomplicated (ICD-10) Pulmonary embolism, bilateral (08/29/19) ?I26.99 - Other pulmonary embolism without acute cor pulmonale (ICD-10) Sensorineural hearing loss, bilateral (04/30/21) ?H90.3 - Sensorineural hearing loss, bilateral (ICD-10) Personal history of malignant neoplasm of larynx (09/06/19) ?Z85.21 - Personal history of malignant neoplasm of larynx (ICD-10) Mixed hyperlipidemia (05/24/08) ?E78.2 - Mixed hyperlipidemia (ICD-10) Benign prostatic hyperplasia (08/29/20) ?N40.0 - Benign prostatic hyperplasia without lower urinary tract symptoms (ICD-10) Abdominal aortic aneurysm (AAA) without rupture (03/02/18) ?I71.40 - Abdominal aortic aneurysm, without rupture, unspecified (ICD-10) Exertional dyspnea ?R06.09 - Other forms of dyspnea (ICD-10) Chronic low back pain ?M54.50 - Low back pain, unspecified (ICD-10) ?G89.29 - Other chronic pain (ICD-10) Diabetes ?E11.9 - Type 2 diabetes mellitus without complications (ICD-10) Gout ?M10.9 - Gout, unspecified (ICD-10) High cholesterol ?E78.00 - Pure hypercholesterolemia, unspecified (ICD-10) Hypertension ?I10 - Essential (primary) hypertension (ICD-10) Coronary artery disease ?I25.10 - Atherosclerotic heart disease of [place] coronary artery without angina pectoris (ICD-10) Gastrointestinal bleeding ?K92.2 - Gastrointestinal hemorrhage, unspecified (ICD-10) Heart failure ?I50.9 - Heart failure, unspecified (ICD-10) Pulmonary edema ?J81.1 - Chronic pulmonary edema (ICD-10) Surgical History (Updated 09/21/24 @ 16:56 by Suleiman Lafleur MD) Normal colonoscopy History of cataract surgery ?Z98.49 - Cataract extraction status, unspecified eye (ICD-10) S/P total left hip arthroplasty ?Z96.642 - Presence of left artificial hip joint (ICD-10) 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 His is disabled by severe lymphedema. His son is being treated for stage IV cancer of the tongue and throat. He quit smoking in 2001 with a 52 pack-year history. He drinks about 1 L of whiskey per week. Code status is full. 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 What is your current living situation?: I presently have a place to live Problems where you live: no known problems Problems where you live details: N/A In the past 12 months, utilities in danger of being shut off: no In past 12 months, lack of transportation kept you from medical appts, meetings, work, or getting things needed for daily living: no In the past 12 mos, have been you worried that your food would run out before you had money to buy more?: never true In the past 12 mos, the food you bought just didn't last and you didn't have money to buy more?: never true Highest level of school completed/degree received: Bachelor's degree Smoking Status: Former smoker Do you use any of these nicotine containing products: None How often do you have a drink containing alcohol: 4 or more times a week How many standard drinks containing alcohol do you have on a typical day: 3 or 4 How often do you have six or more drinks on one occasion: Never AUDIT-C Alcohol total score: 5 Non-prescribed substance use: denies use Caffeine: Yes How often does anyone, including family, friends and others, physically hurt you: never How often does anyone, including family, friends and others, insult or talk down to you: never How often does anyone, including family, friends and others, threaten you with harm: never How often does anyone, including family, friends and others, scream or curse at you: never service: Yes Meds Home Medications and Allergies Home Medications ?Medication ?Instructions ?Recorded ?Confirmed ?Type allopurinol 300 mg tablet 300 mg PO DAILY 02/07/24 09/21/24 History atorvastatin 40 mg tablet 40 mg PO DAILY 02/07/24 09/21/24 History finasteride 5 mg tablet 5 mg PO DAILY 02/07/24 09/21/24 History metoprolol succinate 25 mg 25 mg PO DAILY 02/07/24 09/21/24 History tablet,extended release 24 hr omeprazole 20 mg capsule,delayed 20 mg PO BID 02/07/24 09/21/24 History release tamsulosin 0.4 mg capsule 0.8 mg PO DAILY 02/07/24 09/21/24 History acetaminophen 650 mg 1,300 mg PO BID 09/21/24 09/21/24 History tablet,extended release (8 Hour Pain Reliever) apixaban 2.5 mg tablet (Eliquis) 2.5 mg PO BID 09/21/24 09/21/24 History lisinopril 2.5 mg tablet 2.5 mg PO DAILY 09/21/24 09/21/24 History Allergies Allergy/AdvReac Type Severity Reaction Status Date / Time No Known Drug Allergies Allergy Verified 09/21/24 12:56 Exam Narrative: Exam Narrative: He is alert and appears in no distress. He gives his own history. Forgetful for some details. Some corroborative information from his daughter. Head is without obvious trauma. Neck is supple without mass or adenopathy. No tenderness. Oropharynx is normal except for dry mucous membranes. Respirations are clear to auscultation without wheezing rales or rhonchi. Cardiovascular: S1, S2, regular rate and rhythm. No murmur gallop or rub. Abdomen: Bowel sounds active. Abdomen is soft. He has mild tenderness and fullness in the suprapubic area. Palpation there causes and urge to void suggestive of enlarged bladder. No other abdominal mass. No peritonitis. External genitalia normal. Extremities are somewhat cool to touch. He has intact but diminished pedal pulses. He moves all 4 extremities well. No rash. Const: Vital Signs, click to edit/add: Vital Signs - 24 hr 09/21/24 10:52 09/21/24 11:03 09/21/24 11:04 Temperature 97.2 F L Pulse Rate 91 89 Pulse Rate [Right Pulse Oximeter] 94 Respiratory Rate 18 Blood Pressure 102/45 L Blood Pressure [Ri ght Upper Arm] 102/45 L Pulse Oximetry 100 93 90 Oxygen Delivery Me thod Room Air 09/21/24 11:15 09/21/24 11:15 09/21/24 11:16 Temperature Pulse Rate 100 100 98 Pulse Rate [Right Pulse Oximeter] Respiratory Rate Blood Pressure 113/54 L 113/54 L Blood Pressure [Ri ght Upper Arm] Pulse Oximetry 100 100 100 Oxygen Delivery Me thod 09/21/24 11:30 09/21/24 11:31 09/21/24 11:45 Temperature Pulse Rate 92 87 98 Pulse Rate [Right Pulse Oximeter] Respiratory Rate 23 Blood Pressure 96/43 L Blood Pressure [Ri ght Upper Arm] Pulse Oximetry 100 99 100 Oxygen Delivery Me thod 09/21/24 12:00 09/21/24 12:02 09/21/24 12:03 Temperature Pulse Rate 90 88 Pulse Rate [Right Pulse Oximeter] Respiratory Rate 15 20 19 Blood Pressure 111/59 L Blood Pressure [Ri ght Upper Arm] Pulse Oximetry 100 100 Oxygen Delivery Me thod 09/21/24 12:45 09/21/24 13:00 09/21/24 13:02 Temperature Pulse Rate 104 H 92 99 Pulse Rate [Right Pulse Oximeter] Respiratory Rate 19 15 Blood Pressure 114/53 L Blood Pressure [Ri ght Upper Arm] Pulse Oximetry 100 100 Oxygen Delivery Me thod 09/21/24 13:15 09/21/24 13:30 09/21/24 13:32 Temperature Pulse Rate 94 91 93 Pulse Rate [Right Pulse Oximeter] Respiratory Rate 27 H 12 12 Blood Pressure 126/54 L Blood Pressure [Ri ght Upper Arm] Pulse Oximetry 100 98 96 Oxygen Delivery Me thod 09/21/24 13:39 09/21/24 13:43 09/21/24 13:45 Temperature 98.1 F Pulse Rate 92 90 87 Pulse Rate [Right Pulse Oximeter] Respiratory Rate 16 15 Blood Pressure 116/47 L 116/47 L Blood Pressure [Ri ght Upper Arm] Pulse Oximetry 94 91 92 Oxygen Delivery Me od Room Air 09/21/24 13:47 09/21/24 14:00 09/21/24 14:00 Temperature 98.0 F Pulse Rate 90 91 96 Pulse Rate [Right Pulse Oximeter] Respiratory Rate 12 16 16 Blood Pressure 107/45 L 117/51 L Blood Pressure [Ri ght Upper Arm] Pulse Oximetry 90 100 Oxygen Delivery Me od Room Air 09/21/24 14:02 09/21/24 14:03 09/21/24 14:15 Temperature Pulse Rate 88 87 82 Pulse Rate [Right Pulse Oximeter] Respiratory Rate 13 Blood Pressure 117/51 L Blood Pressure [Ri ght Upper Arm] Pulse Oximetry 97 92 95 Oxygen Delivery Me thod 09/21/24 14:17 09/21/24 14:17 09/21/24 14:30 Temperature 98.1 F Pulse Rate 89 89 88 Pulse Rate [Right Pulse Oximeter] Respiratory Rate 16 Blood Pressure 113/52 L 113/52 L 118/55 L Blood Pressure [Ri ght Upper Arm] Pulse Oximetry 94 94 100 Oxygen Delivery Me od Room Air 09/21/24 14:30 09/21/24 14:32 09/21/24 14:33 Temperature Pulse Rate 88 87 87 Pulse Rate [Right Pulse Oximeter] Respiratory Rate 13 18 10 L Blood Pressure 118/55 L Blood Pressure [Ri ght Upper Arm] Pulse Oximetry 96 100 97 Oxygen Delivery Me od 09/21/24 14:45 09/21/24 14:47 09/21/24 15:00 Temperature 98.2 F Pulse Rate 90 90 90 Pulse Rate [Right Pulse Oximeter] Respiratory Rate 10 L 12 16 Blood Pressure 127/63 127/58 L Blood Pressure [Ri ght Upper Arm] Pulse Oximetry 93 100 94 Oxygen Delivery Me od Room Air 09/21/24 15:00 09/21/24 15:01 09/21/24 15:15 Temperature Pulse Rate 92 91 91 Pulse Rate [Right Pulse Oximeter] Respiratory Rate 11 L 17 Blood Pressure 127/58 L Blood Pressure [Ri ght Upper Arm] Pulse Oximetry 93 93 96 Oxygen Delivery Me od 09/21/24 15:17 09/21/24 15:30 09/21/24 15:30 Temperature 98.6 F Pulse Rate 91 88 90 Pulse Rate [Right Pulse Oximeter] Respiratory Rate 17 11 L 16 Blood Pressure 130/57 L 148/64 H Blood Pressure [Ri ght Upper Arm] Pulse Oximetry 98 98 99 Oxygen Delivery Me od Room Air 09/21/24 15:32 09/21/24 15:45 09/21/24 15:46 Temperature Pulse Rate 90 91 92 Pulse Rate [Right Pulse Oximeter] Respiratory Rate 11 L 12 Blood Pressure 148/64 H 146/67 H Blood Pressure [Ri ght Upper Arm] Pulse Oximetry 98 100 98 Oxygen Delivery Me thod Documenting provider has reviewed patient's vital signs: yes Hospitalist - H&P: Result Labs Labs: Short CBC 09/21/24 Range/Units 11:35 WBC 6.07 (4.50-11.00) K/uL Hgb 4.9 L* (13.5-17.5) gm/dL Hct 17.2 L (37.0-53.0) % Plt Count 309 (140-440) K/uL BMP 09/21/24 11:35 Sodium 134 L Potassium 4.6 Chloride 103 Carbon Dioxide 22 BUN 23 Creatinine 1.0 Glucose 243 H Calcium 8.9 Cardiac Enzymes 09/21/24 Range/Units 11:35 Troponin I < 0.01 L (0.01-0.04) ng/mL Liver Function 09/21/24 Range/Units 11:35 Total Bilirubin 0.3 (0.1-1.5) mg/dL Direct Bilirubin 0.2 (0.0-0.5) mg/dL AST 17 (12-35) U/L ALT 13 (4-50) U/L Alkaline Phosphatase 86 (40-150) U/L Albumin 3.7 (3.3-5.0) g/dL ECG Attestation: I personally reviewed and interpreted this ECG as follows: (Normal sinus rhythm with right bundle branch block. Not substantially changed compared to 03/14/2024) ECG interpretation date: 09/21/[address] scan - head: Radiologist's impression: INDICATION: Fall, patient on blood thinners. TECHNIQUE: CT head without contrast. COMPARISON: Head CT 06/15/2019 FINDINGS: CSF spaces: Within normal limits for age. Brain parenchyma: No intracranial bleed or mass effect. Cerebral atrophy with mild low-density within the deep white matter. Skull base and calvarium: Opacification right maxillary sinus extending to the ostiomeatal unit. The visualized orbits are grossly unremarkable. No skull fractures. Atherosclerosis. Posterior scalp hematoma. IMPRESSION: 1. No intracranial bleed or mass effect. 2. Cerebral atrophy with nonspecific white matter disease, likely microangiopathy. 3. Opacified right maxillary sinus extending to the right ostiomeatal unit. This has mild convexity of the differential diagnosis includes chronic sinusitis or sinonasal polyposis. Appearance is similar to the [address] cervical spine: Radiologist's impression: INDICATION: Fall, patient on blood thinners. TECHNIQUE: CT cervical spine without contrast. COMPARISON: None FINDINGS: Vertebrae: Alignment is normal. There are no fractures or suspicious bony lesions. Discs and facet joints: Facet hypertrophy C2-3 without significant stenosis. Facet hypertrophy with posterior osteophyte at C3-4 causing moderate to severe left foraminal stenosis. Facet hypertrophy with posterior osteophyte at C4-5 causing severe left foraminal stenosis. Disc space narrowing with posterior osteophytes C5-6 and facet hypertrophy causing severe left foraminal stenosis. Posterior osteophyte at C6-7 causing mild bilateral foraminal stenosis. Facet hypertrophy at C7-T1 without significant stenosis. Extraspinal findings: Atherosclerosis. IMPRESSION: Multilevel degenerative changes without evidence of cervical spine fracture. CT scan - abdomen: Radiologist's impression: INDICATION: Fall on blood thinners, right hip pain and left flank pain. Lower left rib pain. TECHNIQUE: Axial images were obtained from the diaphragm to the pubic symphysis. Reformats were obtained in the coronal and sagittal plane. IV Contrast: 67 cc Isovue 370 Oral Contrast: None COMPARISON: Abdomen and pelvis CT 06/15/2019 FINDINGS: Lower chest: Enlarged left low axillary lymph node measuring 11 millimeters. Trace bilateral pleural effusions. Status post coronary artery bypass grafting. Calcified granuloma right lower lobe. Liver: Unremarkable. Normal in size and attenuation. No masses. Gallbladder and bile ducts: Unremarkable. No stones or inflammation. No biliary dilatation. Spleen: Unremarkable. Normal in size without mass. Pancreas: Mild pancreatic atrophy. Adrenal glands: Unremarkable. No nodules. Kidneys: Unremarkable. No masses, stones, or hydronephrosis. Vasculature: Atherosclerosis with the infrarenal abdominal aorta measuring 3.2 centimeters which is stable compared to the 2019 exam (series 5, image 76). GI tract: The stomach is unremarkable. No dilated loops of large or small intestine. Colonic diverticulosis. Pelvis: Unremarkable. Bones: Status post left total hip replacement. Old left 8th through 11th rib fractures. Nondisplaced acute left 8th rib fracture posterolaterally. Status post median sternotomy. IMPRESSION: 1. Nondisplaced acute left 8th rib fracture posterolaterally. 2. No evidence of solid organ injury or intraperitoneal hematoma. 3. Low left axillary lymphadenopathy measuring 11 millimeters. 4. Other incidental findings as detailed above. Assessment and Plan Assessment and plan (1) Gastrointestinal bleeding: Status: Acute (2) Anemia: Problem comment: Acute on chronic. Acute blood loss anemia from GI bleeding present today. Status: Acute (3) Heart failure: Problem comment: Patient is having symptoms of fairly severe heart disease/heart failure. Some of this is related to his severe anemia. Recheck echo as well for to reassess his heart failure. Echocardiogram 04/05/2020: Final Impressions: 1. Normal LV size, normal wall thickness, moderately reduced global systolic function with an estimated EF of 40 - 45%. 2. Mildly enlarged left atrium. 3. The aortic valve is trileaflet and sclerotic, no stenosis and no regurgitation. 4. The mitral valve is sclerotic, moderate mitral regurgitation. Status: Acute (4) Exertional dyspnea: Problem comment: Patient reports that walking 25 ft causes him to be severely dyspneic and it takes him some time to catch his breath. Likely due to combination of severe anemia and heart failure Status: Acute (5) Closed rib fracture: Problem comment: Left 8th rib fracture secondary to fall at home. Conservative management Status: Acute (6) Weakness: Problem comment: Bilateral leg weakness progressive over months. Likely due to severe anemia but also heart failure and deconditioning and malnutrition. Therapy to evaluate Status: Acute (7) Pulmonary embolism, bilateral: Problem comment: Bilateral saddle [place] [facility] Had an IVC filter placed and removed during that hospital stay. Chronic anticoagulation with Eliquis since then. Hold Eliquis pending evaluation for GI bleeding. Patient is high risk for recurrent clot so resume Eliquis as soon as possible to be done safely Status: Acute (8) Benign prostatic hyperplasia: Problem comment: Check bladder scan. Status: Acute (9) Alcohol use disorder: Problem comment: Initiate CIWA protocol. Advised abstinence. Status: Acute (10) Malnutrition: Problem comment: Patient estimates weight loss of 50 lb over the past year. Medical records indicate about 8 kg of weight loss during that time. Status: Acute (11) Hypertension: Problem comment: Continue metoprolol 25 mg daily if blood pressure allows with history of AFib. Hold lisinopril 2.5 mg daily pending evaluation of GI bleed Status: Acute (12) Coronary artery disease: Problem comment: Asymptomatic Status: Acute Plan 89-year-old male admitted to the hospital with severe anemia likely due to gastrointestinal bleeding. Admitted with monitoring of vital signs, serial hemoglobins, evaluation of source of bleeding, assessment of heart failure, blood transfusion, monitoring and management of other chronic medical problems including monitoring for alcohol withdrawal and managing blood pressure and Total Time Spent Total Time Spent: Total time spent today is 90 minutes in coordination of care, reviewing outside records, discussing with patient and other providers ongoing evaluation of multiple problems noted above.
[2024-09-21] MEDS: OMEPRAZOLE 20 MG CAPSULE DR PO (18:00)
[2024-09-21] MEDS: THIAMINE 100 MG TABLET PO (18:01)
[2024-09-21] MEDS: PRESERVISION AREDS 2 PO (18:01)
[2024-09-21 18:24] LABS: Hemoglobin A1C* 4.9 % (0-5.6)
[2024-09-21 19:59] LABS: Appearance Urine Cloudy (Clear); Bilirubin Urine Negative (Negative); Blood Urine Negative (Negative); Color Urine Yellow (Yellow); Glucose Urine Negative (Negative); Ketones Urine Negative (Negative); Leukocyte Esterase Urine 1+ (Negative); Nitrite Urine Negative (Negative); Protein Urine Negative (Negative); Urobilinogen Urine 0.2 (0.2-1.0); pH Urine 6.5 (5.0-8.5)
[2024-09-21 20:01] LABS: Hemoglobin* 7.4 gm/dL (13.5-17.5)
[2024-09-21 20:11] LABS: RBC Urine 0-2 (0-2); WBC Urine 0-2 (0-5)
[2024-09-21] MEDS: ACETAMINOPHEN 650 MG TABLET ER 1300 MG PO (20:48)
[2024-09-21] MEDS: SODIUM CHLORIDE 0.9 % (FLUSH) 10 ML SYRINGE 5 ML IVF (20:49)
--- NOTE | 2024-09-21 22:18 | PC.NURSE ---
End of Shift: Patient admitted to CCU4. Pleasant and cooperative. First unit of blood completed and second unit given without difficulty. No s/s of transfusion reaction. Patient up to BSC with SBA. Post void residual x2, patient denies any discomfort, updated MD and continue to monitor at this time. Patient tolerating clear liquids with no nausea. No BM this shift. C/o pain in left side 1-2/10 at rest and declined PRN pain medication. CIWA 0.
[2024-09-21 23:31] LABS: Lab Add On Test New Spec Needed
[2024-09-22] VITALS (14 sets, daily range): BP systolic 117–139; BP diastolic 57–93; PULSE 71–90; RESP 14–20; TEMP 36.1–36.7; O2SAT 94–99; BMI 22.7
[2024-09-22] MEDS: OXYCODONE 5 MG TABLET 2.5 MG PO ×4 (02:10→20:34)
[2024-09-22] MEDS: OMEPRAZOLE 20 MG CAPSULE DR PO ×2 (06:17→16:58)
[2024-09-22 06:27] LABS: Basophils Absolute Auto 0.05 K/uL (0.00-0.30); Basophils Percent Auto 0.8 % (0.0-3.0); Eosinophils Percent Auto 3.1 % (0.0-7.0); Hematocrit 22.8 % (37.0-53.0); Immature Granulocytes Abs Auto 0.01 K/uL (0.00-0.30); Immature Granulocytes Pct Auto 0.2 %; Lymphocytes Absolute Auto 1.64 K/uL (0.90-2.90); Lymphocytes Percent Auto 25.3 % (20-44); Mean Corpuscular HGB Conc 30 gm/dL (32-36); Mean Corpuscular Hemoglobin 24 pg (26-34); Mean Corpuscular Volume 80 fL (80-100); Neutrophils Absolute Auto 3.81 K/uL (1.7-7.0); Neutrophils Percent Auto 58.6 % (42.0-72.0); Platelet Count* 289 K/uL (140-440); RDW Coefficient of Variation % 19.8 % (11.5-15.5); Red Blood Count 2.84 m/uL (4.30-5.90); White Blood Count* 6.49 K/uL (4.50-11.00)
[2024-09-22 06:43] LABS: Chloride* 107 mmol/L (96-114); Potassium* 4.1 mmol/L (3.6-5.1); Sodium* 137 mmol/L (135-149)
[2024-09-22 06:46] LABS: Blood Urea Nitrogen* 17 mg/dL (7-30); Est. Creatinine Clearance* 46.08; Estimated Glomerular Filt Rate 72 ml/min
[2024-09-22 06:47] LABS: Anion Gap 4 mEq/L (7-15); Calcium* 8.8 mg/dL (8.4-10.6); Carbon Dioxide* 26 mmol/L (20-32); Glucose* 102 mg/dL (60-115)
--- NOTE | 2024-09-22 06:52 | PC.NURSE ---
Pt alert and oriented x3. Pt?reports 5-10/10 left rib pain with movement, pain managed with PRN Oxycodone. Pt slept throughout most of night. Pt is up SBA to commode, voiding, and tolerating regular diet. No stools overnight. Bed low, alarm on, call light and belongings within reach.?Pt has been NPO since 0000 09/22/24.
[2024-09-22 07:13] LABS: Hemoglobin* 6.9 gm/dL (13.5-17.5); Slide Review Reflex No
[2024-09-22] MEDS: MULTIVITAMIN/MINERALS 1 TABLET 1 TAB PO (08:41)
[2024-09-22] MEDS: ACETAMINOPHEN 650 MG TABLET ER 1300 MG PO ×2 (08:41→20:34)
[2024-09-22] MEDS: FINASTERIDE 5 MG TABLET PO (08:42)
[2024-09-22] MEDS: ATORVASTATIN CALCIUM 40 MG TABLET PO (08:42)
[2024-09-22] MEDS: TAMSULOSIN HCL 0.4 MG CAPSULE 0.8 MG PO (08:42)
[2024-09-22] MEDS: SODIUM CHLORIDE 0.9 % (FLUSH) 10 ML SYRINGE 5 ML IVF ×2 (08:42→20:34)
[2024-09-22] MEDS: METOPROLOL SUCCINATE (XL) 25 MG TAB PO (08:42)
[2024-09-22] MEDS: allopurinoL 300 MG TABLET PO (08:42)
--- NOTE | 2024-09-22 14:29 | W.ANESCHARGE ---
Anesthesia Charges Start Date/Time Anesthesia Start Date: 09/22/24 Anesthesia Start Time: 14:45 Stop Date/Time Anesthesia Stop Date: 09/22/24 Anesthesia Stop Time: 15:05 Summary Extremes of Age - Over 70 or under 1: MDA Coding CPT Codes CPT Codes: ANES UPR GI NDSC PX NOS - 20777 ([id number]) P4 - PT W/SEV SYS DIS THREAT LIFE, QK - MAINTENANCE AND CUSTODIAN SUPERVISOR 2-4 CNCRNT ANES PROC, QX - [employer] MARKETING MANAGER SVC W/ MD MED DIRECTION Additional Codes: Summary - Extremes of Age - Over 70 or under 1: MDA ([id number])
--- NOTE | 2024-09-22 14:40 | W.ANESCHARGE ---
Anesthesia Charges Start Date/Time Anesthesia Start Date: 09/22/24 Anesthesia Start Time: 14:45 Stop Date/Time Anesthesia Stop Date: 09/22/24 Anesthesia Stop Time: 15:05 Summary Extremes of Age - Over 70 or under 1: CELL TECHNICIAN Coding CPT Codes CPT Codes: ANES UPR GI NDSC PX NOS - 35740 ([id number]) P2 - PATIENT W/MILD SYST DISEASE, QK - HOSTLER HELPER 2-4 CNCRNT ANES PROC, QX - CELL TECHNICIAN SVC W/ MD MED DIRECTION Additional Codes: Summary - Extremes of Age - Over 70 or under 1: CELL TECHNICIAN ([id number])
--- NOTE | 2024-09-22 15:06 | PM.IMPN1 ---
Progress Note: A&P Assessment and plan (1) Anemia: Problem details: -Acute on chronic. Acute blood loss anemia from GI bleeding present today. -hemoglobin 4.9 on presentation and has stabilized at 7 grams/deciliter status post 2 units of packed red blood cells -consider additional transfusion -may benefit from iron infusion Status: Acute (2) Gastrointestinal bleeding: Problem details: -EGD this afternoon Status: Acute (3) Weakness: Problem details: Bilateral leg weakness progressive over months. Likely due to severe anemia but also heart failure and deconditioning and malnutrition. Therapy to evaluate Status: Acute (4) Closed rib fracture: Problem details: Left 8th rib fracture secondary to fall at home. Conservative management. Chest x-ray demonstrates no pneumothorax with small pleural effusion. Status: Acute (5) Heart failure: Problem details: Patient is having symptoms of fairly severe heart disease/heart failure. Some of this is related to his severe anemia. Recheck echo as well for to reassess his heart failure. Echocardiogram 04/05/2020: Final Impressions: 1. Normal LV size, normal wall thickness, moderately reduced global systolic function with an estimated EF of 40 - 45%. 2. Mildly enlarged left atrium. 3. The aortic valve is trileaflet and sclerotic, no stenosis and no regurgitation. 4. The mitral valve is sclerotic, moderate mitral regurgitation. Status: Acute (6) Exertional dyspnea: Problem details: Patient reports that walking 25 ft causes him to be severely dyspneic and it takes him some time to catch his breath. Likely due to combination of severe anemia and heart failure Status: Acute (7) Coronary artery disease: Problem details: Asymptomatic Status: Acute (8) Alcohol use disorder: Problem details: Initiate CIWA protocol. Advised abstinence. Status: Acute (9) Malnutrition: Problem details: Patient estimates weight loss of 50 lb over the past year. Medical records indicate about 8 kg of weight loss during that time. Status: Acute (10) Pulmonary embolism, bilateral: Problem details: Bilateral saddle embolism managed at [facility] in [place]. Had an IVC filter placed and removed during that hospital stay. Chronic anticoagulation with Eliquis since then. Hold Eliquis pending evaluation for GI bleeding. Patient is high risk for recurrent clot so resume Eliquis as soon as possible to be done safely Status: Acute (11) Benign prostatic hyperplasia: Problem details: Check bladder scan. Status: Acute (12) Hypertension: Problem details: Continue metoprolol 25 mg daily if blood pressure allows with history of AFib. Hold lisinopril 2.5 mg daily pending evaluation of GI bleed Status: Acute Plan 1. If he remains stable it is possible he might be ready to be discharged as early as tomorrow. 2. Continue with serial hemoglobins and vital signs 3. Await EGD results 4. Patient agreeable with above stated plans and recommendations Time Spent With Patient Total time spent: 35 minutes Subjective Date Seen: 09/22/24 Interval history: Admission history of present illness: ?89 year old male with history of massive pulmonary embolism on anticoagulation, heart failure, alcohol use disorder, coronary artery disease admitted through the emergency department after a fall at home. Patient reports months of progressive exertional dyspnea and leg weakness. He reports he is getting the point where his legs give out when he is just walking. He now reports he can walk about 25 ft before he has to stop to catch his breath. Today he fell and landed on his left back and head. In the emergency department he was found to have an acute left 8th rib fracture. He was also found to have a hemoglobin of 4.9 with an MCV of 82. He had Hemoccult-positive stool. In reviewing his records I see is hemoglobin on 03/14/2024 was 9.2 and his hemoglobin in August of 2023 was 11.2. He has had mild anemia for the last 5 years with hemoglobin ranging from 9.4-13.5. He does report that he has had occasions where he strains to have a bowel movement and then has bright red blood on the toilet tissue. He does not ever recall seeing bloody stools, maroon stools, melanotic stools. He is on Eliquis. He was hospitalized at [facility] for a massive saddle embolism about 5 years ago. He has a longstanding history of alcohol abuse. He tells me he drinks 1 L of whiskey per week. He has been advised to stop drinking. He reports weight loss of about 50 lb in the last year. He reports a poor appetite. His family reports he is not eating much. In reviewing past medical records I see his weight in clinic in June 2023 was 69.7 kg and in 03/29/2024 was 64.9 kg. His weight in our records was 66.2 kg in January 2024 and 63.5 kg in February of 2020 for an today his weight is 61.7 kg. That appears to be an unintentional weight loss of 8 kg since June 2023.? 09/22/2024: Hospital day 2. He feels a little stronger today. Does not feel quite so weak on his legs. Denies nausea or vomiting. Denies abdominal pain. Denies overt blood loss. Notes ongoing left-sided chest discomfort. Denies cough or dyspnea. Able to take deep breaths. States his left heel is tender to the touch since he fell the other day as well. Able to weightbear. Exam Narrative: Exam Narrative: Examine him in his hospital room. Appears comfortable and in no acute distress. Alert and oriented x3. Cooperative and friendly. Lungs clear to auscultation without wheezing, rhonchi, rales. Heart tones with regular rhythm, normal S1-S2. Abdomen with active bowel sounds, soft nontender. Tenderness to touch in left calcaneus without bruising. Able to bear weight on affected left lower extremity. Const: Vital Signs, click to edit/add: Vital Signs - 24 hr 09/21/24 15:15 09/21/24 15:17 09/21/24 15:30 Temperature Pulse Rate 91 91 88 Pulse Rate [Left A pical] Respiratory Rate 17 17 11 L Blood Pressure 130/57 L Blood Pressure [Ri ght Arm] Pulse Oximetry 96 98 98 Oxygen Delivery Me thod 09/21/24 15:30 09/21/24 15:32 09/21/24 15:45 Temperature 98.6 F Pulse Rate 90 90 91 Pulse Rate [Left A pical] Respiratory Rate 16 11 L Blood Pressure 148/64 H 148/64 H Blood Pressure [Ri ght Arm] Pulse Oximetry 99 98 100 Oxygen Delivery Me thod Room Air 09/21/24 15:46 09/21/24 16:00 09/21/24 16:11 Temperature 97.9 F Pulse Rate 92 89 Pulse Rate [Left A pical] Respiratory Rate 12 16 16 Blood Pressure 146/67 H 148/71 H Blood Pressure [Ri ght Arm] Pulse Oximetry 98 100 97 Oxygen Delivery Me thod Room Air Room Air 09/21/24 16:16 09/21/24 16:19 09/21/24 16:58 Temperature 96.6 F L 96.6 F L 98.2 F Pulse Rate 88 Pulse Rate [Left A pical] Respiratory Rate 16 16 16 Blood Pressure 141/71 H Blood Pressure [Ri ght Arm] 148/77 H 148/77 H Pulse Oximetry 100 100 96 Oxygen Delivery Me thod Room Air Room Air Room Air 09/21/24 17:00 09/21/24 17:15 09/21/24 17:45 Temperature 98.2 F 98.0 F 97.9 F Pulse Rate 87 94 Pulse Rate [Left A pical] 88 Respiratory Rate 16 16 16 Blood Pressure 146/70 H 129/67 Blood Pressure [Ri ght Arm] 141/71 H Pulse Oximetry 96 98 97 Oxygen Delivery Me thod Room Air Room Air Room Air 09/21/24 18:00 09/21/24 18:00 09/21/24 18:15 Temperature 97.8 F 97.8 F Pulse Rate 90 90 Pulse Rate [Left A pical] 90 Respiratory Rate 16 16 Blood Pressure 142/73 H Blood Pressure [Ri ght Arm] 142/73 H Pulse Oximetry 99 99 Oxygen Delivery Me thod Room Air Room Air 09/21/24 18:45 09/21/24 19:00 09/21/24 19:00 Temperature 98.6 F 98.3 F 98.3 F Pulse Rate 88 Pulse Rate [Left A pical] 96 96 Respiratory Rate 16 16 16 Blood Pressure 137/76 Blood Pressure [Ri ght Arm] 142/75 H 142/75 H Pulse Oximetry 97 98 98 Oxygen Delivery Me thod Room Air Room Air Room Air 09/21/24 19:30 09/21/24 20:30 09/21/24 23:00 Temperature 98.3 F 98.5 F 97.6 F Pulse Rate 96 90 Pulse Rate [Left A pical] 81 Respiratory Rate 16 16 16 Blood Pressure 142/75 H 129/72 Blood Pressure [Ri ght Arm] 125/62 Pulse Oximetry 98 97 96 Oxygen Delivery Me thod Room Air Room Air Room Air 09/21/24 23:00 09/22/24 00:11 09/22/24 02:15 Temperature 98.0 F Pulse Rate 90 Pulse Rate [Left A pical] 81 80 Respiratory Rate 16 Blood Pressure Blood Pressure [Ri ght Arm] 139/67 Pulse Oximetry 98 Oxygen Delivery Me thod Room Air 09/22/24 07:00 09/22/24 07:00 09/22/24 07:00 Temperature 97.1 F L 97.1 F L Pulse Rate Pulse Rate [Left A pical] 76 76 76 Respiratory Rate 18 18 18 Blood Pressure Blood Pressure [Ri ght Arm] 130/58 L 130/58 L Pulse Oximetry 99 99 Oxygen Delivery Me thod Room Air Room Air 09/22/24 07:02 09/22/24 12:51 09/22/24 13:27 Temperature 97.7 F 97.7 F Pulse Rate 72 Pulse Rate [Left A pical] 78 78 Respiratory Rate 16 16 Blood Pressure [facility] 127/65 127/65 Pulse Oximetry 98 98 Oxygen Delivery Me thod Room Air Room Air Labs Labs: Laboratory Results - last 24 hr 09/21/24 09/21/24 09/21/24 11:35 17:10 18:20 WBC RBC Hgb Hct MCV MCH MCHC RDW Coeff of [place] Plt Count Neut % (Auto) Lymph % (Auto) [place] % (Auto) Eos % (Auto) Baso % (Auto) Neut # (Auto) Lymph # (Auto) [place] # (Auto) Eos # (Auto) Baso # (Auto) Abs Immat Gran (auto) Imm/Tot Granulo (auto) Sodium Potassium Chloride Carbon Dioxide Anion Gap BUN Creatinine Estimated Creat Clear Estimated GFR Glucose Hemoglobin A1c 4.9 Calcium Urine Color Yellow Urine Appearance Cloudy A Urine pH 6.5 Ur Specific [place] 1.010 Urine Protein Negative Urine Glucose (UA) Negative Urine Ketones Negative Urine Blood Negative Urine Nitrite Negative Urine Bilirubin Negative Urine Urobilinogen 0.2 Ur Leukocyte Esterase 1+ A Urine RBC 0-2 Urine WBC 0-2 Ur Squamous Epith Cells None Urine Bacteria None Lab Acknowledgement New Spec Needed Blood Type O Positive Antibody Screen NEGATIVE Crossmatch (AHG) See Detail 09/21/24 09/22/24 09/22/24 19:53 06:19 10:44 WBC 6.49 RBC 2.84 L Hgb 7.4 L* 6.9 L* 7.0 L* Hct 22.8 L MCV 80 MCH 24 L MCHC 30 L RDW Coeff of Skylar 19.8 H Plt Count 289 Neut % (Auto) 58.6 Lymph % (Auto) 25.3 [place] % (Auto) 12.0 H Eos % (Auto) 3.1 Baso % (Auto) 0.8 Neut # (Auto) 3.81 Lymph # (Auto) 1.64 [place] # (Auto) 0.80 Eos # (Auto) 0.20 Baso # (Auto) 0.05 Abs Immat Gran (auto) 0.01 Imm/Tot Granulo (auto) 0.2 Sodium 137 Potassium 4.1 Chloride 107 Carbon Dioxide 26 Anion Gap 4 L BUN 17 Creatinine 1.0 Estimated Creat Clear 46.08 Estimated GFR 72 Glucose 102 Hemoglobin A1c Calcium 8.8 Urine Color Urine Appearance Urine pH Ur Specific [place] Urine Protein Urine Glucose (UA) Urine Ketones Urine Blood Urine Nitrite Urine Bilirubin Urine Urobilinogen Ur Leukocyte Esterase Urine RBC Urine WBC Ur Squamous Epith Cells Urine Bacteria Lab Acknowledgement Blood Type Antibody Screen Crossmatch (AHG)
[2024-09-22] MEDS: THIAMINE 100 MG TABLET PO (16:58)
--- NOTE | 2024-09-22 19:59 | PC.NURSE ---
End of shift-- Pleasant and cooperative, alert and oriented patient. VSS and pt is afebrile. SPO2 maintained >90% on RA. Pain in left side appears well managed with Oxycodone and Tylenol as needed. LS CTA. He denied nausea and ate a clear liquid dinner without difficulty. Pt went to endoscopy at roughly 1400 today and returned just before 1600. He was up to the BR with SBA and walker and tolerated it fair. He does become SOB with exertion. Family was at bedside today and appear loving and supportive. Report to FREDDY Arnold.
[2024-09-23] VITALS (7 sets, daily range): BP systolic 134–139; BP diastolic 60–65; PULSE 69–88; RESP 16–19; TEMP 35.7–36.3; O2SAT 98–100
[2024-09-23] MEDS: OXYCODONE 5 MG TABLET 2.5 MG PO ×2 (03:46→08:06)
--- NOTE | 2024-09-23 06:03 | PC.NURSE ---
[id number]: Patient pleasant and cooperative. A&Ox3. PRN Oxycodone for L. rib pain. CIWA's unremarkable. Tolerating clears. A1/walker/GB. Appeared to rest well during noc.
[2024-09-23] MEDS: OMEPRAZOLE 20 MG CAPSULE DR PO (06:54)
[2024-09-23 07:19] LABS: Basophils Absolute Auto 0.05 K/uL (0.00-0.30); Basophils Percent Auto 0.8 % (0.0-3.0); Eosinophils Absolute Auto 0.27 K/uL (0.00-0.50); Eosinophils Percent Auto 4.4 % (0.0-7.0); Hematocrit 24.1 % (37.0-53.0); Immature Granulocytes Abs Auto 0.01 K/uL (0.00-0.30); Immature Granulocytes Pct Auto 0.2 %; Lymphocytes Percent Auto 24.4 % (20-44); Mean Corpuscular HGB Conc 30 gm/dL (32-36); Mean Corpuscular Hemoglobin 25 pg (26-34); Mean Corpuscular Volume 81 fL (80-100); Monocytes Percent Auto 13.1 % (0.0-11.0); Neutrophils Absolute Auto 3.52 K/uL (1.7-7.0); Neutrophils Percent Auto 57.1 % (42.0-72.0); Platelet Count* 325 K/uL (140-440); RDW Coefficient of Variation % 20.1 % (11.5-15.5); Red Blood Count 2.97 m/uL (4.30-5.90); White Blood Count* 6.16 K/uL (4.50-11.00)
[2024-09-23 07:26] LABS: Hemoglobin* 7.3 gm/dL (13.5-17.5); Slide Review Reflex No
[2024-09-23] MEDS: METOPROLOL SUCCINATE (XL) 25 MG TAB PO (08:53)
[2024-09-23] MEDS: ACETAMINOPHEN 650 MG TABLET ER 1300 MG PO (08:54)
[2024-09-23] MEDS: allopurinoL 300 MG TABLET PO (08:54)
[2024-09-23] MEDS: FINASTERIDE 5 MG TABLET PO (08:54)
[2024-09-23] MEDS: ATORVASTATIN CALCIUM 40 MG TABLET PO (08:54)
[2024-09-23] MEDS: SODIUM CHLORIDE 0.9 % (FLUSH) 10 ML SYRINGE 5 ML IVF (08:54)
[2024-09-23] MEDS: TAMSULOSIN HCL 0.4 MG CAPSULE 0.8 MG PO (08:54)
[2024-09-23] MEDS: MULTIVITAMIN/MINERALS 1 TABLET 1 TAB PO (08:54)
[2024-09-23] MEDS: PRESERVISION AREDS 2 PO (12:23)
--- NOTE | 2024-09-23 12:59 | PM.DS1 ---
DS: Providers Provider Time Seen by Provider: 10:14 Date Seen: 09/23/24 Date of admission: 09/21/24 16:09 Primary care physician: Lloyd Barry MD Admitting Clinician: Mike Scanlon MD Consults: 09/21/24 16:12 Consult to Nutrition [CONS] Routine Comment: Reason for consult:: Weight Loss Consult to Occupational Therapy [CONS] Routine Comment: Reason(s) for OT Consult:: Evaluate and Treat Any Restrictions?:: No Restrictions Consult to Physical Therapy [CONS] Routine Comment: Reason(s) for PT Consult:: Evaluate and Treat Any Restrictions?:: No Restrictions Consult to Agricultural Crop Farm Manager [CONS] Routine Comment: Reason for Consult:: Discharge Planning Needs 09/23/24 10:25 Consult to Occupational Therapy [CONS] Routine Comment: Reason(s) for OT Consult:: Evaluate and Treat Any Restrictions?:: No Restrictions Consult to Physical Therapy [CONS] Routine Comment: Reason(s) for PT Consult:: Evaluate and Treat Any Restrictions?:: No Restrictions Attending Physician on discharge: Roxie Mercado MD Date of Discharge: 09/23/24 DS: Diagnosis Discharge Diagnosis (1) Anemia: Status: Acute Problem details: -Acute on chronic. Suspected acute blood loss anemia from GI bleeding. -hemoglobin 4.9 on presentation and has stabilized at 7 grams/deciliter status post 2 units of packed red blood cells -may benefit from iron infusion - consider as outpatient (2) Gastrointestinal bleeding: Status: Suspected Problem details: -EGD: no source of bleeding identified -colonoscopy as outpatient (3) Weakness: Status: Acute Problem details: Bilateral leg weakness progressive over months. Likely due to severe anemia but also heart failure and deconditioning and malnutrition. Therapy evaluated. Safe to return home using walker. (4) Closed rib fracture: Status: Acute Problem details: Left 8th rib fracture secondary to fall at home. Conservative management. Chest x-ray demonstrates no pneumothorax with small pleural effusion. (5) Heart failure: Status: Acute Problem details: Patient is having symptoms of fairly severe heart disease/heart failure. Some of this is related to his severe anemia. Recheck echo as well for to reassess his heart failure. Echocardiogram 04/05/2020: Final Impressions: 1. Normal LV size, normal wall thickness, moderately reduced global systolic function with an estimated EF of 40 - 45%. 2. Mildly enlarged left atrium. 3. The aortic valve is trileaflet and sclerotic, no stenosis and no regurgitation. 4. The mitral valve is sclerotic, moderate mitral regurgitation. 09/22 ECHO as below (6) Exertional dyspnea: Status: Acute Problem details: Patient reports that walking 25 ft causes him to be severely dyspneic and it takes him some time to catch his breath. Likely due to combination of severe anemia and heart failure - improved after transfusion (7) Coronary artery disease: Status: Chronic Problem details: Asymptomatic (8) Alcohol use disorder: Status: Chronic Problem details: Initiate CIWA protocol. Advised abstinence. (9) Pulmonary embolism, bilateral: Status: Inactive Problem details: Bilateral saddle embolism managed at [facility] [place] in 2020. Had an IVC filter placed and removed during that hospital stay. Chronic anticoagulation with Eliquis since then. Hold Eliquis pending evaluation for GI bleeding. Patient is high risk for recurrent clot so resume Eliquis as soon as possible to be done safely (10) Benign prostatic hyperplasia: Status: Chronic (11) Hypertension: Status: Acute Problem details: Continue metoprolol 25 mg daily if blood pressure allows with history of AFib. Restart lisinopril 2.5 mg daily (12) Malnutrition: Status: Acute Problem details: Patient estimates weight loss of 50 lb over the past year. Medical records indicate about 8 kg of weight loss during that time. - Recommend abstinence from alcohol, which may improve appetite. F/u with Dr. Barry. DS: Summary Hospital Course Hospital Course: Per H&P: Dany Hook is a 89 year old male with history of massive pulmonary embolism on anticoagulation, heart failure, alcohol use disorder, coronary artery disease admitted through the emergency department after a fall at home. Patient reports months of progressive exertional dyspnea and leg weakness. He reports he is getting the point where his legs give out when he is just walking. He now reports he can walk about 25 ft before he has to stop to catch his breath. Today he fell and landed on his left back and head. In the emergency department he was found to have an acute left 8th rib fracture. He was also found to have a hemoglobin of 4.9 with an MCV of 82. He had Hemoccult-positive stool. In reviewing his records I see is hemoglobin on 03/14/2024 was 9.2 and his hemoglobin in August of 2023 was 11.2. He has had mild anemia for the last 5 years with hemoglobin ranging from 9.4-13.5. He does report that he has had occasions where he strains to have a bowel movement and then has bright red blood on the toilet tissue. He does not ever recall seeing bloody stools, maroon stools, melanotic stools. He is on Eliquis. He was hospitalized at [facility] for a massive saddle embolism about 5 years ago. He has a longstanding history of alcohol abuse. He tells me he drinks 1 L of whiskey per week. He has been advised to stop drinking. He reports weight loss of about 50 lb in the last year. He reports a poor appetite. His family reports he is not eating much. In reviewing past medical records I see his weight in clinic in June 2023 was 69.7 kg and in 03/29/2024 was 64.9 kg. His weight in our records was 66.2 kg in January 2024 and 63.5 kg in February of 2020 for an today his weight is 61.7 kg. That appears to be an unintentional weight loss of 8 kg since June 2023. Please see diagnoses above for full details. Patient was given 2 units packed red blood cells, which brought hemoglobin up to around 7, and he has remained stable there. EGD was unremarkable. I spoke with the patient and his family about his home situation since he is living with his , who has difficulties transferring and ambulating, and his stepson who is autistic and has stage IV cancer, on chemotherapy, also now having trouble with mobility. I asked physical and occupational therapy to see him before he discharged. They noted that he was moving well at this time. [place] . I recommended that he consider assisted living and he noted that his is looking into it. Outpatient colonoscopy is recommended as is abstinence from alcohol. I would also like him to see Dr. Barry early this week for hemoglobin check. These recommendations were given to the patient and his family today. I spoke with Dr. Barry today and asked him to consider outpatient iron infusion. I spoke with Dany about the risks of bleeding while on Eliquis, especially if he continues drinking alcohol, as well as the risk of embolus if he were to stop Eliquis. He is discharged home in improved and stable condition. Patient and family are aware of the complexity and difficulties of his situation with high risk of embolus and high risk of bleeding. Time Spent with Patient Time attestation: Total time spent providing and/or coordinating discharge services: Today I spent 60 minutes seeing the patient, discussing the plan with the patient and his family, and Dr. Barry, reviewing [facility] notes/diagnostics/labs, discussing the care plan with our care team that includes social work, PT/OT, pharmacy, RT, retirement and documenting my impressions and plan in the medical record. Exam Narrative: Exam Narrative: General: No acute distress. Awake, alert, oriented x3. Mild pallor. No jaundice. Oropharynx: Clear. Mucous membranes moist. Cardiovascular: Regular rate and rhythm. No murmurs, gallops, or rubs. Respiratory: Clear to auscultation bilaterally. No wheezes or crackles. Abdomen: Bowel sounds present. Soft, nondistended, nontender. Const: Vital Signs, click to edit/add: Vital Signs - 24 hr 09/22/24 13:27 09/22/24 15:00 09/22/24 15:00 Temperature 97.7 F 96.9 F L Pulse Rate Pulse Rate [Left A pical] 78 79 71 Respiratory Rate 16 14 16 Blood Pressure [Ri ght Arm] 127/65 117/66 Pulse Oximetry 98 97 Oxygen Delivery Me thod Room Air Room Air 09/22/24 16:00 09/22/24 16:25 09/22/24 16:32 Temperature 96.9 F L Pulse Rate 84 Pulse Rate [Left A pical] 74 71 Respiratory Rate 14 16 Blood Pressure [Ri ght Arm] 130/62 120/93 H Pulse Oximetry 97 Oxygen Delivery Ca thod Room Air 09/22/24 16:49 09/22/24 20:15 09/22/24 20:17 Temperature 97.6 F 97.6 F Pulse Rate Pulse Rate [Left A pical] 74 73 73 Respiratory Rate 16 20 20 Blood Pressure [Ri ght Arm] 125/63 123/57 L 123/57 L Pulse Oximetry 94 95 95 Oxygen Delivery Ca thod Room Air Room Air Room Air 09/22/24 23:00 09/22/24 23:00 09/23/24 00:00 Temperature 97.0 F L 97.0 F L Pulse Rate 73 Pulse Rate [Left A pical] 78 78 Respiratory Rate 19 19 Blood Pressure [Ri ght Arm] 135/60 135/60 Pulse Oximetry 98 98 Oxygen Delivery Me thod Room Air 09/23/24 03:45 09/23/24 04:00 09/23/24 07:33 Temperature 96.2 F L 96.2 F L Pulse Rate 77 Pulse Rate [Left A pical] 88 88 Respiratory Rate 19 Blood Pressure [Ri ght Arm] 136/60 136/60 Pulse Oximetry 100 100 Oxygen Delivery Me thod Room Air Room Air 09/23/24 08:00 09/23/24 11:00 09/23/24 12:00 Temperature 97.3 F L 97.4 F L 97.4 F L Pulse Rate Pulse Rate [Left A pical] 69 75 75 Respiratory Rate 16 18 18 Blood Pressure [Ri ght Arm] 134/61 139/65 139/65 Pulse Oximetry 99 99 99 Oxygen Delivery Me thod Room Air Room Air Room Air DS: Data Data Completed and Pending Completed studies during hospitalization: 09/21/2024 EKG: Normal sinus rhythm, 97 beats per minute, right bundle-branch block. 09/22/2024 echocardiogram: Normal LV size, normal wall thickness, low normal global systolic function with an estimated EF of 50-55%. Entire inferior wall and posterior wall are abnormal. Grade 2 pattern of LV diastolic filling. Indeterminate LA pressure estimate. Mildly enlarged left atrium. Ventricular cavity size is mildly enlarged, global systolic RV function is mildly reduced. The aortic valve is calcified and trileaflet, minimal stenosis (mean gradient 10 mm Hg) and trivial regurgitation. The mitral valve is normal, moderate mitral regurgitation. Tricuspid valve is normal and moderate tricuspid regurgitation. Severely increased estimated pulmonary pressures by tricuspid regurgitation velocity and right atrial pressure (53 mm Hg plus RAP). The inferior vena cava is mildly dilated, respiratory size variation less than 50%, consistent with elevated right atrial pressure. Ordering Physician: Cristi Ac D.O. Date of Service: 09/21/24 Procedure(s): CT abdomen pelvis w con Accession Number(s): [id number] cc: Cristi Ac D.O.; Lloyd Barry M.D.~ For Patients: As a result of the Century Cures Act, medical imaging exams and procedure reports are released immediately into your electronic medical record. You may view this report before your referring provider. If you have questions, please contact your health care provider. INDICATION: Fall on blood thinners, right hip pain and left flank pain. Lower left rib pain. TECHNIQUE: Axial images were obtained from the diaphragm to the pubic symphysis. Reformats were obtained in the coronal and sagittal plane. IV Contrast: 67 cc Isovue 370 Oral Contrast: None COMPARISON: Abdomen and pelvis CT 06/15/2019 FINDINGS: Lower chest: Enlarged left low axillary lymph node measuring 11 millimeters. Trace bilateral pleural effusions. Status post coronary artery bypass grafting. Calcified granuloma right lower lobe. Liver: Unremarkable. Normal in size and attenuation. No masses. Gallbladder and bile ducts: Unremarkable. No stones or inflammation. No biliary dilatation. Spleen: Unremarkable. Normal in size without mass. Pancreas: Mild pancreatic atrophy. Adrenal glands: Unremarkable. No nodules. Kidneys: Unremarkable. No masses, stones, or hydronephrosis. Vasculature: Atherosclerosis with the infrarenal abdominal aorta measuring 3.2 centimeters which is stable compared to the 2019 exam (series 5, image 76). GI tract: The stomach is unremarkable. No dilated loops of large or small intestine. Colonic diverticulosis. Pelvis: Unremarkable. Bones: Status post left total hip replacement. Old left 8th through 11th rib fractures. Nondisplaced acute left 8th rib fracture posterolaterally. Status post median sternotomy. IMPRESSION: 1. Nondisplaced acute left 8th rib fracture posterolaterally. 2. No evidence of solid organ injury or intraperitoneal hematoma. 3. Low left axillary lymphadenopathy measuring 11 millimeters. 4. Other incidental findings as detailed above. Please note that all CT scans at this facility use dose modulation, iterative reconstruction, and/or weight-based dosing when appropriate to reduce radiation dose to as low as reasonably achievable. Dictated by Herrera Krause MD @ 09/21/2024 1:22:41 PM (Electronically Signed) Ordering Physician: Cristi Ac D.O. Date of Service: 09/21/24 Procedure(s): CT cervical spine wo con Accession Number(s): [id number] cc: Cristi Ac D.O.; Lloyd Barry M.D.~ For Patients: As a result of the Century Cures Act, medical imaging exams and procedure reports are released immediately into your electronic medical record. You may view this report before your referring provider. If you have questions, please contact your health care provider. INDICATION: Fall, patient on blood thinners. TECHNIQUE: CT cervical spine without contrast. COMPARISON: None FINDINGS: Vertebrae: Alignment is normal. There are no fractures or suspicious bony lesions. Discs and facet joints: Facet hypertrophy C2-3 without significant stenosis. Facet hypertrophy with posterior osteophyte at C3-4 causing moderate to severe left foraminal stenosis. Facet hypertrophy with posterior osteophyte at C4-5 causing severe left foraminal stenosis. Disc space narrowing with posterior osteophytes C5-6 and facet hypertrophy causing severe left foraminal stenosis. Posterior osteophyte at C6-7 causing mild bilateral foraminal stenosis. Facet hypertrophy at C7-T1 without significant stenosis. Extraspinal findings: Atherosclerosis. IMPRESSION: Multilevel degenerative changes without evidence of cervical spine fracture. Please note that all CT scans at this facility use dose modulation, iterative reconstruction, and/or weight-based dosing when appropriate to reduce radiation dose to as low as reasonably achievable. Dictated by Herrera Krause MD @ 09/21/2024 1:11:21 PM (Electronically Signed) Ordering Physician: Cristi Ac D.O. Date of Service: 09/21/24 Procedure(s): CT head/brain wo con Accession Number(s): [id number] cc: Cristi Ac D.O.; Lloyd Barry M.D.~ For Patients: As a result of the Cures Act, medical imaging exams and procedure reports are released immediately into your electronic medical record. You may view this report before your referring provider. If you have questions, please contact your health care provider. INDICATION: Fall, patient on blood thinners. TECHNIQUE: CT head without contrast. COMPARISON: Head CT 06/15/2019 FINDINGS: CSF spaces: Within normal limits for age. Brain parenchyma: No intracranial bleed or mass effect. Cerebral atrophy with mild low-density within the deep white matter. Skull base and calvarium: Opacification right maxillary sinus extending to the ostiomeatal unit. The visualized orbits are grossly unremarkable. No skull fractures. Atherosclerosis. Posterior scalp hematoma. IMPRESSION: 1. No intracranial bleed or mass effect. 2. Cerebral atrophy with nonspecific white matter disease, likely microangiopathy. 3. Opacified right maxillary sinus extending to the right ostiomeatal unit. This has mild convexity of the differential diagnosis includes chronic sinusitis or sinonasal polyposis. Appearance is similar to the 2019 exam. Please note that all CT scans at this facility use dose modulation, iterative reconstruction, and/or weight-based dosing when appropriate to reduce radiation dose to as low as reasonably achievable. Dictated by Herrera Krause MD @ 09/21/2024 1:07:55 PM (Electronically Signed) Ordering Physician: Mike Scanlon M.D. Date of Service: 09/22/24 Procedure(s): XR chest 1V portable Accession Number(s): [id number] cc: Mike Scanlon M.D.; Lloyd Barry M.D.~ For Patients: As a result of the Cures Act, medical imaging exams and procedure reports are released immediately into your electronic medical record. You may view this report before your referring provider. If you have questions, please contact your health care provider. INDICATION: left rib pain , known L rib fracture TECHNIQUE: Chest 1 view COMPARISON: CT abdomen 09/21/2024 FINDINGS: Cardiac silhouette is mildly prominent. Postoperative changes of CABG. Vascular calcifications. No pneumothorax. Left 8th rib fracture better visualized on prior CT. Small pleural effusions. Calcified granuloma right lower lobe. Dependent atelectasis. IMPRESSION: Small pleural effusions and dependent atelectasis. No pneumothorax. Dictated by Baldomero Waterman MD @ 09/22/2024 10:36:14 AM (Electronically Signed) Ordering Physician: Mike Scanlon M.D. Date of Service: 09/22/24 Procedure(s): XR foot LT min 3V Accession Number(s): [id number] cc: Mike Scanlon M.D.; Lloyd Barry M.D.~ For Patients: As a result of the Cures Act, medical imaging exams and procedure reports are released immediately into your electronic medical record. You may view this report before your referring provider. If you have questions, please contact your health care provider. Indication: L calcaneous pain s/p fall 09/21/24 Technique: Left foot 3 views Comparison: None Findings: Small calcaneal spurs. Vascular calcifications. Intact calcaneus. Midfoot alignment normal. No fracture. Impression: No calcaneal fracture. Dictated by Baldomero Waterman MD @ 09/22/2024 10:34:21 AM (Electronically Signed) Labs on day of discharge: Labs from last 24 hours 09/23/24 06:38 WBC 6.16 RBC 2.97 L Hgb 7.3 L* Hct 24.1 L MCV 81 MCH 25 L MCHC 30 L RDW Coeff of Skylar 20.1 H Plt Count 325 Neut % (Auto) 57.1 Lymph % (Auto) 24.4 [place] % (Auto) 13.1 H Eos % (Auto) 4.4 Baso % (Auto) 0.8 Neut # (Auto) 3.52 Lymph # (Auto) 1.50 [place] # (Auto) 0.80 Eos # (Auto) 0.27 Baso # (Auto) 0.05 Abs Immat Gran (auto) 0.01 Imm/Tot Granulo (auto) 0.2 Discharge Plan Discharge Disposition: Home, Self-Care Date of Admission: 09/21/24 16:09 Attending Provider on Discharge: Roxie Mercado Primary Care Provider: Lloyd Barry Condition: Stable Anticipated Discharge Date/Time: 09/23/24 13:11 Discharge Medications: New thiamine mononitrate (vit B1) [Vitamin B-1 (mononitrate)] 100 mg Tablet 100 mg PO DAILY Qty: 30 0RF multivitamin with folic acid [Thera] 400 mcg Tablet 1 tab PO DAILY Qty: 30 0RF Continued finasteride 5 mg tablet 5 mg PO DAILY atorvastatin 40 mg tablet 40 mg PO DAILY metoprolol succinate 25 mg tablet extended release 24 hr 25 mg PO DAILY allopurinol 300 mg tablet 300 mg PO DAILY tamsulosin 0.4 mg capsule 0.8 mg PO DAILY omeprazole 20 mg capsule,delayed release(DR/EC) 20 mg PO BID lisinopril 2.5 mg tablet 2.5 mg PO DAILY Eliquis 2.5 mg tablet 2.5 mg PO BID acetaminophen [8 Hour Pain Reliever] 650 mg tablet extended release 1,300 mg PO BID Discharge Orders: Discharge Order (Routine); Ordered 09/23/24 Ordered By: Roxie Mercado Additional Instructions: Avoid alcohol f/u with Jhonny for Hgb Mon/Tu Outpatient colonoscopy - Dr. Brown Activity Level: Use Walker Discharge Diet: Regular Follow Up Appointments: Lloyd Barry MD [Primary Care Provider] - (Wed/ with Hgb) Forms: [employer] Info Instructions
--- NOTE | 2024-09-23 14:42 | PC.NURSE ---
Shift Summary: patient pleasant and cooperative. Up with SBA and walker. Pain managed best with rest, 2.5mg oxy given x1. IV removed with catheter intact. Vitals stable and WNL. Discharge instructions given to patient and family, reviewed follow up and medications, instructed to look for signs/symptoms of return of GI bleed. Instructed patient to use walking aids when ambulating and to stop drinking alcohol. Discharged @ 1428 via wheelchair, family to bring home.
== END 2024-09-23 14:28 | disposition home or self-care (01) | DRG 377 ==
LOC: ED 15:04 → MEDSURG 18:26
PROVIDERS: Admitting Provider Family Medicine; Emergency Provider Student in an Organized Health Care Education/Training Program; PCP Family Medicine; Visit Provider Internal Medicine
DX: K92.2 Gastrointestinal hemorrhage, unspecified (principal); I50.33 Acute on chronic diastolic (congestive) heart failure; D62 Acute posthemorrhagic anemia; E44.0 Moderate protein-calorie malnutrition; S22.32XA Fracture of one rib, left side, initial encounter for closed fracture; Z79.01 Long term (current) use of anticoagulants; W10.9XXA Fall (on) (from) unspecified stairs and steps, initial encounter; Y92.015 Private garage of single-family (private) house as the place of occurrence of the external cause; W01.198A Fall on same level from slipping, tripping and stumbling with subsequent striking against other object, initial encounter; Z63.6 Dependent relative needing care at home; Z68.21 Body mass index [BMI] 21.0-21.9, adult; R53.1 Weakness; R06.00 Dyspnea, unspecified; I11.0 Hypertensive heart disease with heart failure; I34.0 Nonrheumatic mitral (valve) insufficiency; E11.9 Type 2 diabetes mellitus without complications; F10.20 Alcohol dependence, uncomplicated; N40.0 Benign prostatic hyperplasia without lower urinary tract symptoms; I25.10 Atherosclerotic heart disease of native coronary artery without angina pectoris; E78.2 Mixed hyperlipidemia; Z86.711 Personal history of pulmonary embolism; Z85.21 Personal history of malignant neoplasm of larynx; Z87.891 Personal history of nicotine dependence; Z96.642 Presence of left artificial hip joint; Z95.1 Presence of aortocoronary bypass graft; I45.10 Unspecified right bundle-branch block
CPT/HCPCS: 00731; 36415; 36430; 43235; 51798; 70450; 71045; 72125; 73630; 74177; 80048; 80076; 81001; 81003; 82270; 82565; 83036; 83540; 83550; 83735; 84484; 85018; 85025; 86850; 86900; 86901; 86922; 87086; 87631; 93005; 93306; 97161; 97165; 97530; 97535; 99100; 99285; A9153; A9270; J2270; J2704; J7030; P9016; Q9967

== ENCOUNTER 2024-12-01 09:24 | Outpatient (CLI) | payer MEDICARE, BC, SELFPAY ==
--- NOTE | 2024-12-01 10:34 | P.ANES_ITS ---
Anesthesia Charges Start Date/Time Anesthesia Start Date: 12/01/24 Anesthesia Start Time: 10:09 Stop Date/Time Anesthesia Stop Date: 12/01/24 Anesthesia Stop Time: 10:32 Coding CPT Codes CPT Codes: ANES LWR INTST NDSC NOS - 38049 ([id number]) P3 - PATIENT W/SEVERE SYS DISEASE, QK - OFFICE MACHINES WIRER 2-4 CNCRNT ANES PROC, QX - ROLLING MACHINE OPERATOR AUTOMATIC SVC W/ MD MED DIRECTION
--- NOTE | 2024-12-01 10:34 | W.ANESCHARGE ---
Anesthesia Charges Start Date/Time Anesthesia Start Date: 12/01/24 Anesthesia Start Time: 10:09 Stop Date/Time Anesthesia Stop Date: 12/01/24 Anesthesia Stop Time: 10:32 Coding CPT Codes CPT Codes: ANES LWR INTST NDSC NOS - 58976 ([id number]) P3 - PATIENT W/SEVERE SYS DISEASE, QK - PIPE INSTALLER 2-4 CNCRNT ANES PROC, QX - PERSONAL VEHICLE ADVISOR SVC W/ MD MED DIRECTION
--- NOTE | 2024-12-01 10:36 | P.ANES_ITS ---
Anesthesia Charges Start Date/Time Anesthesia Start Date: 12/01/24 Anesthesia Start Time: 10:09 Stop Date/Time Anesthesia Stop Date: 12/01/24 Anesthesia Stop Time: 10:32 Summary Extremes of Age - Over 70 or under 1: MDA Coding CPT Codes CPT Codes: ANES LWR INTST NDSC NOS - 76429 ([id number]) QK - PATIENT REGISTRATION SUPERVISOR 2-4 CNCRNT ANES PROC, QX - OPTOMETRIC ASSISTANT SVC W/ MD MED DIRECTION, P3 - PATIENT W/SEVERE SYS DISEASE Additional Codes: Summary - Extremes of Age - Over 70 or under 1: MDA ([id number])
== END 2024-12-01 09:25 | disposition home or self-care (01) ==
LOC: OP CLINIC 09:25
PROVIDERS: PCP Family Medicine; Visit Provider Internal Medicine Gastroenterology
DX: D50.9 Iron deficiency anemia, unspecified (principal); D12.3 Benign neoplasm of transverse colon; K57.30 Diverticulosis of large intestine without perforation or abscess without bleeding
CPT/HCPCS: 00811; 45385; 88305; 99100; J2704

== ENCOUNTER 2024-12-13 13:00 | Outpatient (RCR) | payer MEDICARE, BC, SELFPAY | END 2024-12-13 14:41 | disposition home or self-care (01) | PROVIDERS: PCP Family Medicine; Visit Provider Family Medicine | DX: R29.6 Repeated falls (principal); F10.10 Alcohol abuse, uncomplicated; Z74.1 Need for assistance with personal care; Z51.89 Encounter for other specified aftercare | CPT/HCPCS: 97110; 97112; 97116; 97161; 97165; 97166; 97535 ==

== ENCOUNTER 2025-02-17 20:32 | Outpatient (CLI) | payer MEDICARE, BC, SELFPAY | END 2025-02-17 20:33 | disposition home or self-care (01) | LOC: AMB 02-18 10:49 | PROVIDERS: PCP Family Medicine; Visit Provider Emergency Medicine | DX: S69.91XA Unspecified injury of right wrist, hand and finger(s), initial encounter (principal); Y04.0XXA Assault by unarmed brawl or fight, initial encounter; Y93.9 Activity, unspecified; Y92.9 Unspecified place or not applicable | CPT/HCPCS: A0998 ==

== ENCOUNTER 2025-03-25 08:17 | Observation (INO) | payer MEDICARE, BC, SELFPAY ==
--- OUTSIDE RECORDS SUMMARY | 2025-01-03 05:22 | XMS_ITS | Continuity of Care Document ---
Author Name [facility] Organization [facility] Care Team Providers Care Tool And Die Assembler Name Role Phone [facility] Unavailable Unavailable Problems Combined list of problems from Department of Defense and Veterans Affairs facilities. It does not include entries that were removed or entered in error. Problem Status Onset Date Problem Type Date of Resolution Comments Source Diagnosis: ICD-10-CM H90.3 Sensorineural hearing loss, bilateral Active Diagnosis [facility] Encounters Combined list of: 1) Encounters from Department of Veterans Affairs facilities going backup to the last 18 months, not all [place] inpatient encounters are included; 2) Encounters from the Department of [facility] facilities going backup to 280 months. Location Location Details Encounter Type Encounter Number Reason For Visit Attending Provider ADM Date DC Date Status Disposition Source [place] [facility] Outpatient Encounter [id number] 05/12 [facility] [place] [facility] HC PRO PHONE CALL 11-20 MIN [id number] Diagnos is: ICD-10- CM H90.3 Sensori neural hearing loss, bilater ANGI Myers 05/18 [facility] [place] [facility] Outpatient Encounter [id number] 06/06 [facility] [place] [facility] Outpatient Encounter [id number] ANGI ERICKSON 06/06 [facility] [place] [facility] Outpatient Encounter [id number] 06/20 [facility] [place] [facility] Outpatient Encounter [id number] 07/[facility]
--- OUTSIDE RECORDS SUMMARY | 2025-01-03 05:22 | XMS_ITS | Continuity of Care Document ---
Author Name [facility] Organization [facility] Care Team Providers Care Cleaning Validation Consultant Name Role Phone [facility] Unavailable Unavailable Problems Combined list of problems from Department of Defense and Veterans Affairs facilities. It does not include entries that were removed or entered in error. Problem Status Onset Date Problem Type Date of Resolution Comments Source Diagnosis: ICD-10-CM H90.3 Sensorineural hearing loss, bilateral Active Diagnosis [facility] Encounters Combined list of: 1) Encounters from Department of Veterans Affairs facilities going backup to the last 18 months, not all [facility] inpatient encounters are included; 2) Encounters from the Department of [facility] facilities going backup to 280 months. Location Location Details Encounter Type Encounter Number Reason For Visit Attending Provider ADM Date DC Date Status Disposition Source [place] [facility] Outpatient Encounter [id number] 05/12 [facility] [place] [facility] HC PRO PHONE CALL 11-20 MIN [id number] Diagnos is: ICD-10- CM H90.3 Sensori neural hearing loss, bilater ANGI Myers 05/18 [facility] [place] [facility] Outpatient Encounter [id number] 06/06 [facility] [place] [facility] Outpatient Encounter [id number] ANGI ERICKSON 06/06 [facility] [place] [facility] Outpatient Encounter [id number] 06/20 [facility] [place] [facility] Outpatient Encounter [id number] 07/10 [facility]
[2025-03-25] VITALS (11 sets, daily range): BP systolic 115–136; BP diastolic 59–77; PULSE 72–98; RESP 16–20; TEMP 36.3–37.2; O2SAT 96–100; BMI 19.8
--- OUTSIDE RECORDS SUMMARY | 2025-03-25 08:19 | XMS_ITS ---
Author Organization [facility] ter Care Team Providers Care Senior Instructor Name Role Phone Tom Snehal Unavailable Unavailable Anthony Harmon Unavailable Unavailable Allergies and adverse reactions Code CodeSystem Substance Reaction Severity StartDate Concern Status 2670 RXNORM Codeine Unknown 09/06/2019 active Care Team Name Role Address Phone Organization Dates Anthony Harmon PCP [facility] [address] [place] [address], [address], [place], [facility], [place] (Office): [facility] 09/06/2019 - 09/19/2019 Snehal Romeroon [facility] [address] [facility] [address], [place], [facility], [facility] (Office): : [facility] 09/06/2019 - 09/19/2019 Mental Status Section Date Assessment Total Score Description 09/19/2019 BIMS 15 cognitively int act CAM 0 No delirium ind icated PHQ-9 03 minimal depress ion 09/12/2019 BIMS 15 cognitively int act CAM 0 No delirium ind icated PHQ-9 03 minimal depress ion Problems Problem # Description Date of onset Resolved Date Code CodeSystem Concern Status 1 ABDOMINAL AORTIC ANEURYSM, WITHOUT RUPTURE 09/06/[address] active 2 ABNORMAL COAGULATION PROFILE 09/06/[address] active 3 ACUTE EMBOLISM AND THROMBOSIS OF RIGHT POPLITEAL VEIN 09/06/[address] active 4 ALCOHOL DEPENDENCE, IN REMISSION 09/06/[address] active 5 ATHEROSCLEROTIC HEART DISEASE OF [place] CORONARY ARTERY WITHOUT ANGINA PECTORIS 09/06/[address] active 6 ESSENTIAL (PRIMARY) HYPERTENSION 09/06/[address] active 7 GOUT, UNSPECIFIED 09/06/[address] active 8 HYPERLIPIDEMIA, UNSPECIFIED 09/06/[address] active 9 PERSONAL HISTORY OF MALIGNANT NEOPLASM OF LARYNX 09/06/[address] active 10 PRESENCE OF AORTOCORONARY BYPASS GRAFT 09/06/[address] active 11 SADDLE EMBOLUS OF PULMONARY ARTERY WITHOUT ACUTE COR PULMONALE 09/06/[address] active Reason for Referral No Reasons for Referral Entered Social History Social History Observation Description Start Date End Date Code Code System Current Smoking Status Tobacco smoking consumption unknown 095685257 SNOMED CT Sex Assigned At Male 1935 63684-7 [facility] Gender Identity Vital Signs Code Code System Vitals Name Values and Units Timing Information 20529-7 LOINC Weight Sbggw=823.0 Units=Lbs 9279-1 LOINC Respiratory Rate Value=16.0 Units=/m in 09/13/2019 8462-4 LOINC Blood Pressure-Diastolic Value=61 Un its=mmHg 09/13/2019 8480-6 LOINC Blood Pressure-Systolic Value=99 Uni ts=mmHg 09/13/2019 8310-5 LOINC Body Temperature Value=97.8 Units= F 09/13/2019 8867-4 LOINC Heart rate Value=90.0 Units=/min 70454-7 LOINC O2 % BldC Oximetry Value=97.0 Units= % 09/13/2019 59821-0 LOINC Pain Level Value=0.0 09/12/2019 8302-2 LOINC Height Value=69.0 Units=Inches 09/06/2019
--- OUTSIDE RECORDS SUMMARY | 2025-03-25 08:19 | XMS_ITS | Clinical Summary ---
Author Organization [facility] Address [address] [place] [address] Care Team Providers Care Freight Hustler Name Role Phone Michelle Rader [employer] W[employer]/MISSILE [employer]S OFFICER Unavailable [phone] Lloyd Barry MD Primary Care Provider [phone] Tamera Romero PharmD Unavailable [phone] Allergies Active Allergy Reactions Criticality Noted Date Comments Codeine Constipation Low 12/21/2012 Medications blood-glucose meter (ONE TOUCH BASIC SYSTEM)Indications :Type II or unspecified type diabetes mellitus without mention of complication, not stated as uncontrolled (HC) As directed. Dispense glucose meter, test strips and lancets covered by the patient insurance. Test 3 times per day. 1 Device 0 07/11/20 11 Active lancets (ONETOUCH ULTRASOFT LANCETS)Indication s:Type 2 diabetes mellitus without complication, without long-term current use of insulin (HC) As directed test 1 time daily. 100 Each 3 09/26/19 20 Active acetaminophen (TYLENOL EXTRA STRGTH) 500 mg tablet Take 1,300 mg by mouth two times daily. Max acetaminophen dose: 4000mg in 24 hrs. 0 03/20/20 20 Active cholecalciferol (Vitamin D) 1,000 unit capsuleIndications :Health care maintenance Take 1 Capsule (1,000 units) by mouth once daily. 04/07/20 24 Active tamsulosin 0.4 mg capsuleIndications :Essential hypertension TAKE 2 CAPSULES AT BEDTIME 180 Capsule 3 09/30/19 25 Active omeprazole (PRILOSEC) 20 mg Delayed-Release capsuleIndications :Chronic GERD Take 1 Capsule (20 mg) by mouth once daily before a meal. 90 Capsule 3 09/30/19 25 Active lisinopriL (PRINIVIL; ZESTRIL) 2.5 mg tabletIndications: HTN (hypertension) Take 1 Tablet (2.5 mg) by mouth once daily. 90 Tablet 3 09/30/19 25 Active finasteride (PROSCAR) 5 mg tabletIndications: Benign prostatic hyperplasia, unspecified whether lower urinary tract symptoms present Take 1 Tablet (5 mg) by mouth once daily in the morning. 90 Tablet 3 09/30/19 25 Active apixaban (Eliquis) 2.5 mg tabletIndications: History of pulmonary embolism Take 1 Tablet (2.5 mg) by mouth two times daily. 180 Tablet 3 09/30/19 25 Active blood sugar diagnostic (NubefyTouch Ultra Test) stripIndications:T ype 2 diabetes mellitus without complication, without long-term current use of insulin (HC) Dispense item covered by pt ins. 250.00 NIDDM type II - Test 1 time/day 100 Each 09/30/19 25 Active atorvastatin (LIPITOR) 40 mg tabletIndications: Other hyperlipidemia Take 1 Tablet (40 mg) by mouth once daily. 90 Tablet 3 09/30/19 25 Active polyethylene glycol-electrolyte (GOLYTELY) 236-22.74-6.74 -5.86 gram suspensionIndicati ons:Encounter for screening colonoscopy Drink 2 liters the day before the procedure and 2 liters 6 hours prior to procedure. 4000 mL 11/14/19 25 Active Additional Information Patient not taking.Reason: See Comment (colonoscopy completed), Reported on 01/19/2025 metoprolol succinate 25 mg Sustained-Release tabletIndications: HTN (hypertension) Take 1 Tablet (25 mg) by mouth once daily. Wait until they call for this. 90 Tablet 3 11/27/19 25 Active thiamine HCl (VITAMIN B-1 ORAL) Take 1 Capsule by mouth once daily. Patient will confirm dosage Active allopurinoL (ZYLOPRIM) 100 mg tabletIndications: Acute idiopathic gout of multiple sites Take 2 Tablets (200 mg) by mouth once daily. 180 Tablet 3 02/22/20 25 Active donepeziL (ARICEPT) 5 mg tabletIndications: Memory loss Take 1 Tablet (5 mg) by mouth at bedtime. 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 Sensorineural hearing loss, bilateral 04/30/2021 Benign prostatic hyperplasia 08/29/2020 History of pulmonary embolism 08/28/2020 Overview (04/21/2022): 08/2019 This was unprovoked and it was [...] rupture 03/02/2018 S/P total hip arthroplasty 05/21/2014 Overview (05/21/2014): Left Alcohol abuse 05/21/2014 Overview (03/16/2023): He quit drinking alcohol in January 2023. 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 Anemia, unspecified 04/28/2012 Type II or unspecified type diabetes mellitus without mention of complication, not stated as uncontrolled 05/24/2008 HTN (hypertension) 05/24/2008 Overview (10/08/2009): Updated by system to replace inactive record CAD (coronary artery disease) 05/24/2008 Mixed hyperlipidemia 05/24/2008 Encounters Date Type Department Care Team Description 02/21/2025 3:15 PM CDT Office Visit [facility] [place] [address] [place] [address] Lloyd Barry MD Concerns (memory) 02/21/2025 Travel 02/21/2025 Telephone [facility] [place] [address] [place] [address] Lloyd Barry MD Appointment (02-21-2025) 02/20/2025 Telephone [facility] [place] [address] [place] [address] Lloyd Barry MD Concerns (memory) 01/19/2025 1:05 PM CDT Office Visit [facility] [place] [address] [place] [address] Lloyd Barry MD Medication Management (Routine follow up) 01/19/2025 Travel from Last 3 Months Immunizations Immunization Administration Dates Next Due COVID-19 vaccine (homedeco2u 30mcg/0.3mL) JORGE SALCIDO 05/21/2021,10/02/2020,09/11/2020 DT (Age < 7 years) 11/17/1999,11/12/1997 Influenza A (H1N1), Inactivated 07/23/2009 Influenza A (H1N1), Inactiva mariann (Age >=3 Years) 07/23/2009 Influenza, High-dose Inactivated 024,05/03/2019,04/23/2018,2016,04/08/2017,04/30/2016,05/03/2012 Influenza, High-dose Quadriv alent Inactivated 03/24/2023,05/05/2022 Influenza, IIV3 (Age 6-35 mos) 04/14/2011,2009 Influenza, IIV3 (Age >=3 years) 05/05/20 13,04/30/2012,04/14/2011,2009,04/24/2009,05/23/2008,05/31/2007,1 ,05/27/2005,05/07/2004 Influenza, IIV4 05/21/2021 Pneumococcal Conj 21-Valent (Capvaxive) 10/23/2024 Pneumococcal Poly,23-Valent (Pneumovax) 04/25/2012,06/14/2002 Pneumococcal conj 13-Valent (Prevnar 13) 02/22/2015 Td (Age >=7 Years) 11/17/1999,11/12/1997 Tdap 04/25/2012,01/01/2011 Zoster (Shingrix-RZV, recombinant) 10/23/2024,,04/28/2018 Zoster (Zostavax-ZVL, live) 05/05/2013 Family History Medical History Relation Name Comments Diabetes Father Heart Disease Father Diabetes Mother Cancer-breast Sister 1 Brittany Dementia Sister 1 Brittany in Memory Care Alcoholism Sister 2 Orin of this Cancer-breast Sister 3 Shannan of this d id not treat Relation Name Status Comments Brother 1 Luke Brother 2 Anthony Alive Father Mother Sister 1 Brittany Alive Dementia Sister 2 Orin Sister 3 Shannan Son Social History Tobacco Use Types Packs/Day Years Used Date Smoking Tobacco: Former Cigarettes 1 52 0 [birth year]/28/1948 - 09/14/2001 Passive Smoke Exposure: Past Smokeless Tobacco: Never Tobacco Cessation:Counseling Given: Yes Comments:stepson smokes outside Alcohol Use Standard Drinks/Week Comments Yes 2 (1 standard drink = 0.6 oz pur e alcohol) SEE SCREENING PHQ-2 Answer Date Recorded PHQ-2 TOTAL SCORE 4 09/29/2024 Social Connections Answer Date Recorded Do you often feel lonely or isolated from those around you? 0 11/14/2024 Alcohol Use Answer Date Recorded How often do you have a drink containing alcohol ? 2 01/19/2025 How many drinks containing a lcohol do you have on a typical day when you are drinking? 0 01/19/2025 How often do you have five or more drinks on one occasion? 0 01/19/2025 Financial Resource Strain Answer Date R ecorded Difficulty of Paying Living Expenses 3 11/14/2024 Difficulty of Paying Living Expenses Not on file 11/14/2024 Food Insecurity Answer Date Recorded Do you worry your food will run out before you are able to buy more? 1 11/14/2024 Transportation Needs Answer Date Record ed Does lack of transportation keep you from medica l appointments? 1 11/14/2024 Does lack of transportation keep you from work, meetings or getting things that you need? 1 11/14/2024 Housing Stability Answer Date Recorded What is your housing situation today? 1 11/14/2024 Utilities Answer Date Recorded Do you have trouble paying f or utilities (for example, heat, electricity, water, phone)? 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 Not on file Not on file Not on file Obstetrics History Last Filed Vital Signs Vital Sign Reading Time Taken Comments Blood Pressure 100/56 02/21/2025 3:59 PM CDT Pulse 90 02/21/2025 3:32 PM CDT Temperature 36.3 C (97.3 F) 01/19/2025 1:01 PM CDT Respiratory Rate 20 04/14/2022 10:0 6 AM CDT Oxygen Saturation 98% 02/21/2025 3:32 PM CDT Inhaled Oxygen Concentration - - Weight 59.3 kg (130 lb 11.2 oz) 02/21/2025 3:32 PM CDT Height 164 cm (5' 4.57) 11/14/2024 10: 17 AM CDT Body Mass Index 22.04 11/14/2024 10:17 AM CDT Plan of Treatment Upcoming Encounters Date Type Department Care Team (Late st Contact Info) Description 04/25/2025 2:25 PM CDT Office Visit [facility] [place] [address] [place] [address] Lloyd Barry MD [address] [place] [address] 06/05/2025 10:00 AM AUTO SERVICE INSTRUCTOR Office Visit [facility] [place] [address] [place] [address] Lloyd Barry MD [address] [place] [address] Health Maintenance Due Date Last Done Comments RSV vaccine for adults or (1 - 1-dose 75+ series) 02/18/2011 Tetanus booster 04/25/2022 04/25/2012, 03/2011, 01/01/2011, Additional history exists Influenza Vaccine (#1) 2025 , 05/21/2021, 05/03/2019, Additional history exists Depression screening for age 12+ 09/29/2025 09/29/2024, 09/29/2024, 09/29/2024, Additional history exists Medicare Wellness for age 65+ 09/30/2025 09/29/2024, 09/29/2023, 09/07/2022, Additional history exists BMI (ht and wt on same day) for age 18+ 11/14/2025 11/14/2024, 09/29/2024, 09/29/2023, Additional history exists Pneumococcal series for age 50+ Completed 10/23/2024, 02/22/2015, 04/25/2012, Additional history exists Zoster (shingles) series for age 50+ Completed 10/23/2024, 07/07/2018, 04/28/2018, Additional history exists COVID-19 vaccine series Completed 11/14/19, 05/12/2024, 05/21/2021, Additional history exists Hepatitis B series for 19+ Aged Out N o longer eligible based on patient's age to complete this topic Procedures Procedure Name Priority Date/Time Associated Diagnosis Comments [facility] ERROR MESSAGE ABN TEST REFUSAL ([facility]) Routine 02/21/2025 4:15 PM CDT FOLIC ACID Routine 02/21/2025 4:15 PM CDT Memory loss VITAMIN B12 Routine 02/21/2025 4:15 PM CDT Memory loss ANTI HCV Routine 02/21/2025 4:15 PM CDT Memory loss TSH WITH REFLEX Routine 02/21/2025 4:15 PM CDT Memory loss TREPONEMA PALLIDUM Routine 02/21/2025 4: 14 PM CDT Memory loss CBC WITH AUTO DIFFERENTIAL Routine 01/19/2025 1:52 PM CDT Other iron deficiency anemia FERRITIN Routine 01/19/2025 1:52 PM CDT Other iron deficiency anemia IRON PLUS IRON BINDING CAP Routine 01/19/2025 1:52 PM CDT Other iron deficiency anemia from Last 3 Months Results * [facility] ERROR MESSAGE ABN TEST REFUSAL ([facility]) (02/21/2025 4:15 PM CDT) ABN TEST REFUSAL [facility] Comment: Be advised that your patient has indicated on the advance beneficiary notice their decision not to receive the following laboratory tests. As a result, the tests will not be performed. ABN TEST REFUSAL 91,[address] [facility] 02/21/2025 4:15 PM CDT 02/21/2025 4:22 PM CDT us Lloyd Barry MD SEND OUTS Final Resu lt [facility] [address] [place] [address], [place] [phone] [facility] [address] [place] [address] * TSH WITH REFLEX (02/21/2025 4:15 PM CDT) TSH W/REFLEX TO FT4 0.97 0.40 - 4.50 mIU/L [facility] Blood BLOOD SPECIMEN / Unknown 02/21/2025 4:15 PM CDT 02/21/2025 4:22 PM CDT Lloyd Barry MD CHEMISTRY Final Resu lt Performing Organization Address City/[facility]/ZIP Co de Phone Number [facility] [address] [facility] [place] [address], [place] [phone] [facility] [address] [place] [address] * ANTI HCV (02/21/2025 4:15 PM CDT) Pathologist [facility] HEPATITIS C ANTIBODY NON-REACTI VE NON-REACT BERE [facility] Comment: HCV antibody was non-reactive. There is no laboratory evidence of HCV infection. In most cases, no further action is required. However, if recent HCV exposure is suspected, a test for HCV RNA (test code 44838) is suggested. For additional information please refer to http://education.[employer]/faq/YRJ54v1 (This link is being provided for informational/ educational purposes only.) Blood BLOOD SPECIMEN / Unknown 02/21/2025 4:15 PM CDT 02/21/2025 4:22 PM CDT Lloyd Barry MD SEND OUTS Final Resu lt Performing Organization Address [facility]/ZIP Co de Phone Number [facility] [address] [place] [address], [place] [phone] [facility] [address] [place] [address] * FOLIC ACID (02/21/2025 4:15 PM CDT) Pathologist [facility] FOLATE, SERUM >24.0 ng/mL [facility] Comment: Reference Range Low: <3.4 Borderline: 3.4-5.4 Normal: >5.4 Blood BLOOD SPECIMEN / Unknown 02/21/2025 4:15 PM CDT 02/21/2025 4:22 PM CDT Lloyd Barry MD CHEMISTRY Final Resu lt [facility] [address] [place] [address], [place] [phone] [facility] [address] [place] [address] * VITAMIN B12 (02/21/2025 4:15 PM CDT) Pathologist [facility] VITAMIN B12 490 200 - 1,100 pg/mL [employer] [facility] Blood BLOOD SPECIMEN / Unknown 02/21/2025 4:15 PM CDT 02/21/2025 4:22 PM CDT Lloyd Barry MD CHEMISTRY Final Resu lt Performing Organization Address [facility]/ZIP Co de Phone Number [facility] [address] [place] [address], [place] [phone] [facility] [address] [place] [address] * TREPONEMA PALLIDUM (02/21/2025 4:14 PM CDT) Pathologist [facility] TREPONEMA PALLIDUM Non-Reacti ve Non-Reacti ve 02/21/2025 10:59 PM CDT [employer] [facility] Blood BLOOD SPECIMEN / Unknown [facility] / Unknown 02/21/2025 4:14 PM CDT 02/21/2025 4:14 PM CDT Lloyd Barry MD SEND OUTS Final Resu lt [employer] [facility] [address] [place] [address], * IRON PLUS IRON BINDING CAP (01/19/2025 1:52 PM CDT) Pathologist [facility] IRON, TOTAL 128 50 - 180 mcg/dL [facility] IRON BINDING CAPACITY 299 250 - 425 mcg/dL (calc) [facility] % SATURATION 43 20 - 48 % (calc) [facility] Blood BLOOD SPECIMEN / Unknown 01/19/2025 1:52 PM CDT 01/19/2025 1:53 PM CDT us Lloyd Barry MD CHEMISTRY Final Resu lt [facility] [address] [place] [address], [facility] [address] [place] [address] * (ABNORMAL) CBC AND DIFFERENTIAL (01/19/2025 1:52 PM CDT) Pathologist [facility] WHITE BLOOD CELL COUNT 6.0 3.8 - 10.8 Thousand/u L [facility] RED BLOOD CELL COUNT 3.46(L) 4.20 - 5.80 Million/uL [facility] HEMOGLOBIN 11.6(L) 13.2 - 17.1 g/dL [facility] HEMATOCRIT 35.2(L) 38.5 - 50.0 % [facility] MCV 101.7(H) 80.0 - 100.0 fL [facility] MCH 33.5(H) 27.0 - 33.0 pg [facility] MCHC 33.0 32.0 - 36.0 g/dL [facility] Comment: For adults, a slight decrease in the calculated MCHC value (in the range of 30 to 32 g/dL) is most likely not clinically significant; however, it should be interpreted with caution in correlation with other red cell parameters and the patient's clinical condition. RDW 12.8 11.0 - 15.0 % [facility] PLATELET COUNT 266 140 - 400 Thousand/u L [facility] MPV 10.6 7.5 - 12.5 fL [facility] ABSOLUTE NEUTROPHILS 3,582 1,500 - 7,800 cells/uL [facility] ABSOLUTE LYMPHOCYTES 1,698 850 - 3,900 cells/uL [facility] ABSOLUTE MONOCYTES 552 200 - 950 cells/uL [facility] ABSOLUTE EOSINOPHILS 120 15 - 500 cells/uL [facility] ABSOLUTE BASOPHILS 48 0 - 200 cells/uL [facility] NEUTROPHILS 59.7 % [facility] LYMPHOCYTES 28.3 % [facility] MONOCYTES 9.2 % [facility] EOSINOPHILS 2.0 % [facility] BASOPHILS 0.8 % [facility] Blood BLOOD SPECIMEN / Unknown 01/19/2025 1:52 PM CDT 01/19/2025 1:53 PM CDT Lloyd Barry MD HEMATOLOGY Final Resu lt [facility] [address] [facility] [place] [place] [address], [place] [phone] [facility] [address] [place] [address] * FERRITIN (01/19/2025 1:52 PM CDT) FERRITIN 114 24 - 380 ng/mL [facility] Blood BLOOD SPECIMEN / Unknown 01/19/2025 1:52 PM CDT 01/19/2025 1:53 PM CDT Lloyd Barry MD CHEMISTRY Final Resu lt [facility] [address] [place] [address], [place] [phone] [facility] [address] [place] [address] from Last 3 Months Insurance BLUE [employer]OSS [place] FED EMP MEDICARE PB ONLY MEDICARE PART B HB ONLY MEDICARE PART A HB ONLY Advance Directives Documents on File Type Date Recorded Patient Manpower Development Specialist Expl anation Healthcare Directive 02/22/2018 2:33 PM HE ALTHCARE DIRECTIVE, CLAUDY [place]KER 02/22/18 POLST 02/22/2018 2:31 PM IVETT ALEXIS, 02/15/18 Care Teams Freight Hustler Relationship Specialty Start Date End Date Lloyd Barry MD [address] [place] [address] PCP - General Family Practice 08/29/20 Michelle Rader NP Nurse Practitioner Nurse Practitioner 05/17/14 Tamera Romero PharmD [address] [place] [address] [facility] [place] [address] Pharmacist Medication Management Pharmacology 04/07/24 04/07/27
--- NOTE | 2025-03-25 09:03 | ED.GENADULT ---
HPI - General Adult General Date Seen: 03/25/25 Chief complaint: Diarrhea Stated complaint: diarrhea Time Seen by Provider: 03/25/25 09:03 History of Present Illness HPI narrative: 89-year-old gentleman presenting to the ER today with diarrhea. Per his medical record he has a history of coronary disease, hypertension, pulmonary embolism (on Eliquis), history of GI bleeding (hospitalized in [place] in August), man nutrition, and alcohol use disorder. Per medical record he was seen here in the ER in August, brought in by EMS after a fall. CT scan showed a left 8th rib fracture. Labs showed a dangerously low hemoglobin at 4.9 (baseline had been 9.2 in February 2024). He was hospitalized in [place]. Received 2 g of packed red cells and hemoglobin stabilized around 7. He had EGD with no source of bleeding. He was supposed to have an outpatient colonoscopy. He also had dyspnea on exertion. Thought to be combination of anemia and chronic heart failure. When I asked the patient about this, he has no recollection. He says he did not break a rib, his did. He does not recall getting a blood transfusion. It sounds like he never had his outpatient colonoscopy. His primary care provider is at the [facility] clinic. He says he came to the ER because he thought on Wednesday he would be able to get appointment with his primary clinic. Per records from [facility] he has a history of hypertension, coronary disease, abdominal aortic aneurysm, history of PE, mitral valve insufficiency, tricuspid insufficiency, type 2 diabetes, hyperlipidemia, gout, hearing loss, memory loss, alcohol abuse, demyelinating disease of [employer], BPH. Current meds include Tylenol, allopurinol, apixaban, atorvastatin, vitamin-D, Aricept, Proscar, lisinopril, metoprolol, omeprazole, tamsulosin, thiamine History from the patient is that he has been struggling with diarrhea for about the past 7-10 days. He says it tends to happen at night. He has frequent urgent bowel movements. Often times he will feel a a cramp and a sensation ME needing to go to the bathroom it and he will have significant urgency to run to the toilet and then he will pass a liquidy stool. He has not seen any blood in any of his diarrhea. Sometimes his diarrhea is so urgent almost comes without warning and he has been incontinent in his bed and in his pajama bottoms few times this week. It sounds like it happens multiple times overnight. The diarrhea seems to be less prominent during the day. He is not vomiting. No abdominal pain. He also notes that he has a poor appetite. He says he used to weigh 182 lb when he got in 2007 and now he is down to 117. He says he has had a poor appetite for the past month or 2. Unclear how much weight he has actually lost recently and how much weight loss has occurred over the past 15 years. Is not really able to tell. When asked about antibiotics, he does not know if he has been on antibiotics this summer. When asked about his hospitalization for GI bleed in August, he says that that did not happen him, he thinks it happened to his . It sounds like he was supposed to have had an outpatient colonoscopy but does not remember having had it. He is able to tell me that his does not drive because she has bad lymphedema and can not lift her legs off the pedals in the car. He drove himself here to the ER. He had a visit with PCP on 02/21. During that visit his slump test scored 16/30. He was drinking alcohol, 3-4 shots of whiskey per week. Advised to abstain from alcohol. Started on the donepezil. Told to stop driving. Labs from that visit (actually drawn on 01/19/2025 showed white count 6, hemoglobin 11.6, platelet count 266. Related Data Home Medications ?Medication ?Instructions ?Recorded ?Confirmed atorvastatin 40 mg tablet 40 mg PO DAILY 02/07/24 03/25/25 finasteride 5 mg tablet 5 mg PO DAILY 02/07/24 03/25/25 metoprolol succinate 25 mg 25 mg PO DAILY 02/07/24 03/25/25 tablet,extended release 24 hr omeprazole 20 mg capsule,delayed 20 mg PO DAILY 02/07/24 03/25/25 release tamsulosin 0.4 mg capsule 0.8 mg PO DAILY 02/07/24 03/25/25 acetaminophen 650 mg 1,300 mg PO BID 09/21/24 03/25/25 tablet,extended release (8 Hour Pain Reliever) apixaban 2.5 mg tablet (Eliquis) 2.5 mg PO BID 09/21/24 03/25/25 lisinopril 2.5 mg tablet 2.5 mg PO DAILY 09/21/24 03/25/25 allopurinol 100 mg tablet 200 mg PO DAILY 03/25/25 03/25/25 donepezil 5 mg tablet 5 mg PO HS 03/25/25 03/25/25 Previous Rx's ?Medication ?Instructions ?Recorded multivitamin with folic acid 400 1 tab PO DAILY #30 tabs 09/23/24 mcg tablet (Thera) thiamine mononitrate (vit B1) 100 100 mg PO DAILY #30 tabs 09/23/24 mg tablet (Vitamin B-1 (mononitrate)) Allergies Allergy/AdvReac Type Severity Reaction Status Date / Time No Known Drug Allergies Allergy Verified 03/25/25 08:27 [facility] Medical History (Updated 03/25/25 @ 16:43 by Roxie Mercado MD) Malnutrition ?E46 - Unspecified protein-calorie malnutrition (ICD-10) Alcohol use disorder ?F10.90 - Alcohol use, unspecified, uncomplicated (ICD-10) Pulmonary embolism, bilateral (08/29/19) ?I26.99 - Other pulmonary embolism without acute cor pulmonale (ICD-10) Sensorineural hearing loss, bilateral (04/30/21) ?H90.3 - Sensorineural hearing loss, bilateral (ICD-10) Personal history of malignant neoplasm of larynx (09/06/19) ?Z85.21 - Personal history of malignant neoplasm of larynx (ICD-10) Mixed hyperlipidemia (05/24/08) ?E78.2 - Mixed hyperlipidemia (ICD-10) Benign prostatic hyperplasia (08/29/20) ?N40.0 - Benign prostatic hyperplasia without lower urinary tract symptoms (ICD-10) Abdominal aortic aneurysm (AAA) without rupture (03/02/18) ?I71.40 - Abdominal aortic aneurysm, without rupture, unspecified (ICD-10) Exertional dyspnea ?R06.09 - Other forms of dyspnea (ICD-10) Chronic low back pain ?M54.50 - Low back pain, unspecified (ICD-10) ?G89.29 - Other chronic pain (ICD-10) Diabetes ?E11.9 - Type 2 diabetes mellitus without complications (ICD-10) Gout ?M10.9 - Gout, unspecified (ICD-10) High cholesterol ?E78.00 - Pure hypercholesterolemia, unspecified (ICD-10) Hypertension ?I10 - Essential (primary) hypertension (ICD-10) Coronary artery disease ?I25.10 - Atherosclerotic heart disease of [place] coronary artery without angina pectoris (ICD-10) Gastrointestinal bleeding ?K92.2 - Gastrointestinal hemorrhage, unspecified (ICD-10) Heart failure ?I50.9 - Heart failure, unspecified (ICD-10) Pulmonary edema ?J81.1 - Chronic pulmonary edema (ICD-10) Surgical History Normal colonoscopy History of cataract surgery ?Z98.49 - Cataract extraction status, unspecified eye (ICD-10) S/P total left hip arthroplasty ?Z96.642 - Presence of left artificial hip joint (ICD-10) 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 His is disabled by severe lymphedema. Her son is being treated for stage IV cancer of the tongue and throat. He quit smoking in 2001 with a 52 pack-year history. He drinks about 1 L of whiskey per week. Code status is full. His Eloisa is healthcare power of senior attorney What is your current living situation?: I presently have a place to live Problems where you live: no known problems Problems where you live details: N/A In the past 12 months, utilities in danger of being shut off: no In past 12 months, lack of transportation kept you from medical appts, meetings, work, or getting things needed for daily living: no In the past 12 mos, have been you worried that your food would run out before you had money to buy more?: never true In the past 12 mos, the food you bought just didn't last and you didn't have money to buy more?: never true Highest level of school completed/degree received: Bachelor's degree Smoking Status: Former smoker Do you use any of these nicotine containing products: None How often do you have a drink containing alcohol: 2-4 times a month How many standard drinks containing alcohol do you have on a typical day: 3 or 4 How often do you have six or more drinks on one occasion: Never AUDIT-C Alcohol total score: 3 Non-prescribed substance use: denies use Caffeine: Yes How often does anyone, including family, friends and others, physically hurt you: never How often does anyone, including family, friends and others, insult or talk down to you: never How often does anyone, including family, friends and others, threaten you with harm: never How often does anyone, including family, friends and others, scream or curse at you: never service: Yes Exam Narrative: Exam Narrative: Constitutional: Appears well-developed and well-nourished. Alert. Conversant but voice is little bit raspy and thready. Non toxic. HENT: Head: Atraumatic. Nose: Nose normal. Mouth/Throat: Oral mucosa is clear but dry. no trismus. Pharynx normal. Tonsils symmetric. No tonsillar enlargement, erythema, or exudate. Eyes: Conjunctivae normal. EOM normal. Pupils equal, round, and reactive to light. No scleral icterus. Neck: Normal range of motion. Neck supple. No tracheal deviation present. Cardiovascular: Normal rate, regular rhythm. No gallop. No friction rub. No murmur heard. Symmetric radial artery pulses Pulmonary/Chest: Effort normal. No stridor. No respiratory distress. No wheezes. No rales. No rhonchi . No tenderness. Abdominal: Soft. Bowel sounds normal. No distension. Scaphoid abdomen. No mass. Left lower quadrant and left mid tenderness. No rebound. No guarding. Musculoskeletal: RUE: Normal range of motion. No tenderness. No deformity LUE: Normal range of motion. No tenderness. No deformity RLE: Normal range of motion. No edema. No tenderness. No deformity LLE: Normal range of motion. No edema. No tenderness. No deformity Neurological: Alert and oriented to person, place, and time. Normal strength. CN II-VII intact. No sensory deficit. GCS eye subscore is 4. GCS verbal subscore is 5. GCS motor subscore is 6. Normal coordination Skin: Skin is warm and dry. No rash noted. No pallor. Normal capillary refill. Psychiatric: Normal mood. Normal affect. Const: Vital Signs, click to edit/add: Vital Signs - 24 hr 03/25/25 08:29 03/25/25 09:56 03/25/25 10:00 Temperature 97.3 F L Pulse Rate 79 76 Pulse Rate [Pulse Oximeter] 98 Respiratory Rate 20 Blood Pressure Blood Pressure [Ri ght Upper Arm] 116/73 Pulse Oximetry 100 98 98 Oxygen Delivery Me thod Room Air 03/25/25 10:02 03/25/25 10:03 03/25/25 13:15 Temperature 97.4 F L Pulse Rate 75 72 Pulse Rate [Pulse Oximeter] 87 Respiratory Rate 18 Blood Pressure 118/66 Blood Pressure [Ri ght Upper Arm] 134/77 Pulse Oximetry 97 100 100 Oxygen Delivery Me thod Room Air Course Course ED Course: Recheck-updated patient about results of CT showing diverticulitis. He seems a bit more lucid now and does remember having had his recent colonoscopy (through [facility]) that was normal. Overall he has been getting weaker the past couple of nights and is not able to get himself to the bathroom in time to avoid incontinence with his diarrhea. Would prefer to be admitted. I think that is reasonable. Discussed with our hospitalist, Dr. Mercado, who graciously agrees to admit this 89-year-old patient for diverticulitis. Will start on IV antibiotics. Vital Signs Vital signs: Initial Vital Signs Temperature 97.3 F L 03/25/25 08:29 Temperature Source Temporal Artery Scan 03/25/25 08:29 Pulse Rate 98 03/25/25 08:29 Respiratory Rate 20 03/25/25 08:29 Blood Pressure 116/73 03/25/25 08:29 Blood Pressure Mean 87 03/25/25 08:29 Pulse Oximetry 100 03/25/25 08:29 Oxygen Delivery Method Room Air 03/25/25 08:29 Vital Signs Temperature 97.3 F L 03/25/25 08:29 Pulse Rate 98 03/25/25 08:29 Respiratory Rate 20 03/25/25 08:29 Blood Pressure 116/73 03/25/25 08:29 Pulse Oximetry 100 03/25/25 08:29 Oxygen Delivery Method Room Air 03/25/25 08:29 Temperature 98.6 F 03/25/25 15:24 Pulse Rate 78 03/25/25 15:24 Respiratory Rate 16 03/25/25 15:24 Blood Pressure 136/63 03/25/25 15:24 Pulse Oximetry 100 03/25/25 15:24 Oxygen Delivery Method Room Air 03/25/25 15:24 Medications Administered Medications: Discontinued Medications Generic Name Dose Route Start Last Admin Trade Name Freq PRN Reason Stop Dose Admin Sodium Chloride 1,000 mls @ 1,000 mls/hr 03/25/25 09:30 03/25/25 13:00 0.9 % Sodium Chloride 1000 Ml IV 03/25/25 10:29 Infused .Q1H SLOANE Infusion Medical Decision Making MDM Narrative Medical decision making narrative: This patient presents with a 10 day history of liquidy frequent diarrhea, typically worse at night. There is no high fever, severe pain, bilious or bloody emesis, blood or mucous in the stool, severe abdominal pain, or other concerning signs for a bacterial infection. However given age and medical comorbidities, were concerned about possible colitis, ischemia, C diff, bacterial enteritis, diverticulitis, In addition to a viral causes his diarrhea. No recent travel or high risk exposure for bacterial pathogen. No recent antibiotics or risk factors for C. diff. Laboratory workup is reassuring. He is hemodynamically stable. No evidence for sepsis. CT scan does show signs of acute diverticulitis affecting the descending colon which is likely the cause of the patient's diarrhea. Given his age, mild memory loss, and overall weakness with inability to get to the toilet in time for the past couple of days at home, we agree that hospitalization for IV antibiotics and nursing supportive care is indicated. Accepted graciously bed Dr. Mercado. Family updated by nurses. Lab Data Labs: Lab Results 03/25/25 Range/Units 09:40 WBC 10.10 (4.50-11.00) K/uL RBC 3.68 L (4.30-5.90) m/uL Hgb 12.4 L (13.5-17.5) gm/dL Hct 36.8 L (37.0-53.0) % MCV 100 (80-100) fL MCH 34 (26-34) pg MCHC 34 (32-36) gm/dL RDW Coeff of [place]yl[place] 12.8 (11.5-15.5) % Plt Count 260 (140-440) K/uL Neut % (Auto) 65.2 (42.0-72.0) % Lymph % (Auto) 22.3 (20-44) % [place] % (Auto) 10.2 (0.0-11.0) % Eos % (Auto) 1.9 (0.0-7.0) % Baso % (Auto) 0.3 (0.0-3.0) % Neut # (Auto) 6.59 (1.7-7.0) K/uL Lymph # (Auto) 2.25 (0.90-2.90) K/uL [place] # (Auto) 1.00 H (0.00-0.90) K/UL Eos # (Auto) 0.19 (0.00-0.50) K/uL Baso # (Auto) 0.03 (0.00-0.30) K/uL Abs Immat Gran (auto) 0.01 (0.00-0.30) K/uL Imm/Tot Granulo (auto) 0.1 % INR 0.93 (0.91-1.10) Sodium 132 L (135-149) mmol/L Potassium 4.0 (3.6-5.1) mmol/L Chloride 101 (96-114) mmol/L Carbon Dioxide 24 (20-32) mmol/L Anion Gap 7 (7-15) mEq/L BUN 18 (7-30) mg/dL Creatinine 0.8 (0.5-1.5) mg/dL Estimated GFR 85 ml/min Glucose 129 H (60-115) mg/dL Calcium 9.7 (8.4-10.6) mg/dL Total Bilirubin 0.5 (0.1-1.5) mg/dL AST 31 (12-35) U/L ALT 26 (4-50) U/L Alkaline Phosphatase 71 (40-150) U/L Total Protein 7.0 (6.0-8.3) g/dL Albumin 4.2 (3.3-5.0) g/dL TSH 0.944 (0.270-4.200) uIU/mL Ethyl Alcohol < 0.01 (0.01-0.03) % Imaging Data CT scan - abdomen: Attestation: I have reviewed the pertinent imaging results. Radiologist's impression: IMPRESSION: 1. Acute diverticulitis of the descending colon. Adjacent colonic wall thickening raises the possibility of a mass. Consider colonoscopy after resolution of the current clinical symptoms if not recently performed. 2. Severe atherosclerosis. 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 No acute mesenteric ischemia. 3. Infrarenal abdominal aortic aneurysm measures 3 cm. No change since recent prior exams. 4. There is a 1.2 x 1.3 centimeter cystic lesion arising from the anterior inferior pancreas. This has been present since at least 2019 but has grown. The ACR incidental findings white paper does not specifically address recommended follow-up for patient this age. Depending on patient preference, can consider better characterization with MR abdomen without and with IV contrast pancreas protocol. ECG Data Attestation: I personally reviewed and interpreted this ECG as follows: Interpretation: Normal sinus rhythm with premature atrial complexes Rate 79 WA interval 176 normal QRS axis. Right bundle-branch block pattern. No ST segment elevation or depression. QTC 382, QTC 438 Discharge Plan Discharge Clinical Impression: Diverticulitis, Weakness, Lesion of pancreas, Dehydration, Acute hyponatremia Patient Disposition: Admitted As Observation
--- NOTE | 2025-03-25 09:27 | CRLHL7_ITS ---
For Patients: As a result of the 21st Century Cures Act, medical imaging exams and procedure reports are released immediately into your electronic medical record. You may view this report before your referring provider. If you have questions, please contact your health care provider. INDICATION: Diarrhea, left lower quadrant pain, weight loss. COMPARISON: 09/01/2024, 06/15/2019, 06/04/2017 TECHNIQUE: CT of the abdomen and pelvis with intravenous contrast. Multiplanar axial, coronal, and sagittal reformats were reconstructed. Metal artifact reduction technology was utilized to reconstruct axial images of the pelvis. Contrast: 57 mL Isovue 370. FINDINGS: Lung bases: Left lower lobe paraseptal and centrilobular emphysema. Reticular opacities in the dependent right lung. Overall the appearance of the lung bases is improved since the prior abdominal CT. Granuloma in the right lower lobe. No acute appearing lung findings. Liver: Normal. No mass. Gallbladder and bile ducts: Normal gallbladder. No bile duct dilation. Pancreas: There is a 1.2 x 1.3 centimeter cystic lesion arising from the anterior inferior uncinate process. See series 2, image 58. Measured about 1.1 x 0.8 cm in 2019. No pancreatitis. The pancreatic duct is not dilated. Spleen: Normal spleen size and enhancement. Adrenal glands: Normal. Kidneys: Normal overall renal size and position. Normal symmetric renal parenchymal enhancement. No cyst or solid mass. No calculi. No urinary tract dilation. Urinary bladder: Partially distended and normal. Pelvis: No cyst or mass. Vessels: Severe atherosclerosis. There is a partially thrombosed infrarenal abdominal aortic aneurysm that measures 3 centimeters in diameter on series 4, image 65. Due to the tortuosity, axial images are not reliable. Very minimal enlargement since 2019 without substantial change since 09/21/2024. severe stenosis at the origin of the SMA. There is additional at least moderate stenosis at the distal mesenteric branches of the SMA with atherosclerosis extending well out into the mesenteric branches. The inferior mesenteric artery maybe almost completely occluded at its origin. Bowel: There is a focally inflamed diverticulum in the distal descending colon. There is some adjacent colonic wall thickening. No abscess or collection. See series 2 images [id number] and series 4, image 60. Otherwise normal bowel wall thickness and enhancement. No pneumatosis. The appendix is not discretely seen. The cecum is in the right upper quadrant anteriorly. No volvulus. There are several colonic diverticuli. Mild stool burden. Lymph nodes: No adenopathy. Peritoneum: No ascites. Abdominal wall: No hernia. Decreased subcutaneous fat deposition. Bones: Left hip arthroplasty. No focal worrisome bone lesions. IMPRESSION: 1. Acute diverticulitis of the descending colon. Adjacent colonic wall thickening raises the possibility of a mass. Consider colonoscopy after resolution of the current clinical symptoms if not recently performed. 2. Severe atherosclerosis. 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 No acute mesenteric ischemia. 3. Infrarenal abdominal aortic aneurysm measures 3 cm. No change since recent prior exams. 4. There is a 1.2 x 1.3 centimeter cystic lesion arising from the anterior inferior pancreas. This has been present since at least 2019 but has grown. The ACR incidental findings white paper does not specifically address recommended follow-up for patient this age. Depending on patient preference, can consider better characterization with MR abdomen without and with IV contrast pancreas protocol. Please note that all CT scans at this facility use dose modulation, iterative reconstruction, and/or weight-based dosing when appropriate to reduce radiation dose to as low as reasonably achievable. Dictated by Jaki Perez MD @ 03/25/2025 10:57:32 AM (Electronically Signed)
[2025-03-25 09:52] LABS: Hematocrit 36.8 % (37.0-53.0); Hemoglobin* 12.4 gm/dL (13.5-17.5); Immature Granulocytes Abs Auto 0.01 K/uL (0.00-0.30); Immature Granulocytes Pct Auto 0.1 %; Lymphocytes Absolute Auto 2.25 K/uL (0.90-2.90); Mean Corpuscular HGB Conc 34 gm/dL (32-36); Mean Corpuscular Hemoglobin 34 pg (26-34); Mean Corpuscular Volume 100 fL (80-100); RDW Coefficient of Variation % 12.8 % (11.5-15.5); Red Blood Count 3.68 m/uL (4.30-5.90); White Blood Count* 10.10 K/uL (4.50-11.00)
[2025-03-25 09:55] LABS: Slide Review Reflex No
[2025-03-25 10:09] LABS: Albumin* 4.2 g/dL (3.3-5.0); Chloride* 101 mmol/L (96-114); Sodium* 132 mmol/L (135-149)
[2025-03-25 10:10] LABS: Potassium* 4.0 mmol/L (3.6-5.1)
[2025-03-25 10:12] LABS: Alanine Aminotransferase* 26 U/L (4-50); Alkaline Phosphatase* 71 U/L (40-150); Anion Gap 7 mEq/L (7-15); Aspartate Amino Transferase* 31 U/L (12-35); Bilirubin Total* 0.5 mg/dL (0.1-1.5); Blood Urea Nitrogen* 18 mg/dL (7-30); Carbon Dioxide* 24 mmol/L (20-32); Creatinine* 0.8 mg/dL (0.5-1.5); Estimated Glomerular Filt Rate 85 ml/min; INR 0.93 (0.91-1.10); Prothrombin Time 13.2 Seconds; Total Protein* 7.0 g/dL (6.0-8.3)
[2025-03-25 10:13] LABS: Calcium* 9.7 mg/dL (8.4-10.6); Glucose* 129 mg/dL (60-115)
[2025-03-25 10:15] LABS: Ethanol* < 0.01 % (0.01-0.03)
--- OUTSIDE RECORDS SUMMARY | 2025-03-25 10:59 | XMS_ITS ---
Author Organization [facility] Care Team Providers Care Direct Marketing Executive Name Role Phone Tom Snehal Unavailable Unavailable Anthony Harmon Unavailable Unavailable Allergies and adverse reactions Code CodeSystem Substance Reaction Severity StartDate Concern Status 2670 RXNORM Codeine Unknown 09/06/2019 active Care Team Name Role Address Phone Organization Dates Anthony Harmon PCP [facility] [address] [place] [address], [address], [place], [facility], [place] (Office): [facility] 09/06/2019 - 09/19/2019 Snehal Romeroon [facility] [address] [facility] [address], [place], [facility], [facility] (Office): : [facility] 09/06/2019 - 09/19/2019 Mental Status Section Date [...] 1 ABDOMINAL AORTIC ANEURYSM, WITHOUT RUPTURE 09/06/[address] active 2 ABNORMAL COAGULATION PROFILE 09/06/[address] active 3 ACUTE EMBOLISM AND THROMBOSIS OF RIGHT POPLITEAL VEIN 09/06/[address] active 4 ALCOHOL DEPENDENCE, IN REMISSION 09/06/[address] active 5 ATHEROSCLEROTIC HEART DISEASE OF [place] CORONARY ARTERY WITHOUT ANGINA PECTORIS 09/06/[address] active 6 ESSENTIAL (PRIMARY) HYPERTENSION 09/06/[address] active 7 GOUT, UNSPECIFIED 09/06/[address] active 8 HYPERLIPIDEMIA, UNSPECIFIED 09/06/[address] active 9 PERSONAL HISTORY OF MALIGNANT NEOPLASM OF L[place] 09/06/[address] active 10 PRESENCE OF AORTOCORONARY BYPASS GRAFT 09/06/[address] active 11 SADDLE EMBOLUS OF PULMONARY ARTERY WITHOUT ACUTE COR PULMONALE 09/06/[address] active Reason for Referral No Reasons for Referral Entered Social History Social History Observation Description Start Date End Date Code Code System Current Smoking Status Tobacco smoking consumption unknown 902187922 SNOMED CT Sex Assigned At Male 1935 67[birth year]-0 [facility] Gender Identity Vital Signs Code Code System Vitals Name Values and Units Timing Information 89099-2 LOINC Weight Qlela=020.0 Units=Lbs 9279-1 LOINC Respiratory Rate Value=16.0 Units=/m in 09/13/2019 8462-4 LOINC Blood Pressure-Diastolic Value=61 Un its=mmHg 09/13/2019 8480-6 LOINC Blood Pressure-Systolic Value=99 Uni ts=mmHg 09/13/2019 8310-5 LOINC Body Temperature Value=97.8 Units= F 09/13/2019 8867-4 LOINC Heart rate Value=90.0 Units=/min 97207-1 LOINC O2 % BldC Oximetry Value=97.0 Units= % 09/13/2019 41082-1 LOINC Pain Level Value=0.0 09/12/2019 8302-2 LOINC Height Value=69.0 Units=Inches 09/06/2019
[2025-03-25 11:40] LABS: TSH With Reflex to FT4* 0.944 uIU/mL (0.270-4.200)
--- NOTE | 2025-03-25 16:33 | PM.IMHP1 ---
Assessment and Plan Assessment and plan (1) Diverticulitis: Problem comment: - Persistent symptoms over 7-10 days. Will admit for observation and start oral augmentin. CT scan showed thickened colon near diverticulitis, patient had colonoscopy just 3 months ago, so I think another would likely not be helpful at this point, and at his age the risk outweighs the benefit. - check for C diff. - He does not appear dehydrated, and has h/o CHF, so I will hold off on IVF. - low fiber diet Status: Acute (2) Alcohol use disorder: Problem comment: Initiate CIWA protocol. Advised abstinence. Status: Chronic (3) Malnutrition: Problem comment: H/o malnutrition/weight loss: 08/2024 - Patient estimates weight loss of 50 lb over the past year. Medical records indicate about 8 kg of weight loss during that time. - 03/25/25 severe protein calorie malnutrition, alcohol use and pancreatic lesion possibly contributing. wt now 55kg, down another 6 kg from August. Start nutritional supplementation, recommended abstaining from EtOH, nutrition consult. Status: Acute (4) Acute hyponatremia: Problem comment: mild, asymptomatic. Monitor. Status: Acute (5) Lesion of pancreas: Problem comment: - Will need outpatient f/u with goals of care discussion and possibly further pancreatic imaging. Status: Acute (6) Weakness: Problem comment: - PT and OT consults Status: Acute (7) Gastrointestinal bleeding: Problem comment: - 09/21/24 EGD: no source of bleeding identified - 12/01/24 Colonoscopy by Raegan, 4mm polyp, retrieval complete. Recommendation was to resume Eliquis and no repeat colonoscopy due to age. - 03/25 has been on Eliquis without further evidence of bleeding. Hgb 12.4 today. Monitor. Status: Chronic (8) Memory change: Problem comment: OT consult - MOCA. is now aware of recommendation that patient should not drive. Status: Acute Total Time Spent Total Time Spent: Time spent: Today I spent 75 minutes seeing the patient, discussing with his over the phone, discussing the patient with ER staff, reviewing Expanse and EPIC notes/diagnostics, discussing the care plan with our care team that includes social work, PT/OT, pharmacy, RT, care home and documenting my impressions and plan in the medical record. 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 He denies fever, but does feel chilled. He thought he had been on antibiotics for this recently, but I reviewed his [facility] records and find no evidence of this. His , Eloisa, confirms that he has not been on any antibiotics recently. He does not recall having a colonoscopy recently. He also does not recall his primary care provider recently told him to stop driving. He drove himself to the ER. His watches him set up his medications and take them at home, but states that he is still doing well with that task on his own. She notes that his memory has gotten progressively worse over the last few months and she has asked his primary care doctor to do some testing for that. She did have an incident recently where she left him alone for a while with a lot of food in the house, but when she got back he had not eaten much and a lot of the food had gone bad. She said that she realizes now that his dementia is bad enough that she can no longer leave him alone like that. She also described an incident between him and her son who is living with them. This happened when she was not home and apparently Anatoly called the police on her son, and her son was taken into custody overnight. He is now back in the house and things are going well. There have been no other incidents like that. She was also not aware that he was told that he should no longer drive. Review of Systems Status of ROS: Reports: unobtainable due to medical condition (cognitive impairment) Medical Decision Making Medical Decision Making Code Status: DNR/DNI Has patient completed a Health Care Directive: Yes During This Stay, Who Would You Like To Make Decisions For You In The Event You Are Unable To Make Them For Yourself?: Eloisa Hook () [phone] [facility] Medical History (Updated 03/25/25 @ 17:04 by Roxie Mercado MD) Malnutrition ?E46 - Unspecified protein-calorie malnutrition (ICD-10) Alcohol use disorder ?F10.90 - Alcohol use, unspecified, uncomplicated (ICD-10) Pulmonary embolism, bilateral (08/29/19) ?I26.99 - Other pulmonary embolism without acute cor pulmonale (ICD-10) Sensorineural hearing loss, bilateral (04/30/21) ?H90.3 - Sensorineural hearing loss, bilateral (ICD-10) Personal history of malignant neoplasm of larynx (09/06/19) ?Z85.21 - Personal history of malignant neoplasm of larynx (ICD-10) Mixed hyperlipidemia (05/24/08) ?E78.2 - Mixed hyperlipidemia (ICD-10) Benign prostatic hyperplasia (08/29/20) ?N40.0 - Benign prostatic hyperplasia without lower urinary tract symptoms (ICD-10) Abdominal aortic aneurysm (AAA) without rupture (03/02/18) ?I71.40 - Abdominal aortic aneurysm, without rupture, unspecified (ICD-10) Exertional dyspnea ?R06.09 - Other forms of dyspnea (ICD-10) Chronic low back pain ?M54.50 - Low back pain, unspecified (ICD-10) ?G89.29 - Other chronic pain (ICD-10) Diabetes ?E11.9 - Type 2 diabetes mellitus without complications (ICD-10) Gout ?M10.9 - Gout, unspecified (ICD-10) High cholesterol ?E78.00 - Pure hypercholesterolemia, unspecified (ICD-10) Hypertension ?I10 - Essential (primary) hypertension (ICD-10) Coronary artery disease ?I25.10 - Atherosclerotic heart disease of [place] coronary artery without angina pectoris (ICD-10) Gastrointestinal bleeding ?K92.2 - Gastrointestinal hemorrhage, unspecified (ICD-10) Heart failure ?I50.9 - Heart failure, unspecified (ICD-10) Pulmonary edema ?J81.1 - Chronic pulmonary edema (ICD-10) Surgical History Normal colonoscopy History of cataract surgery ?Z98.49 - Cataract extraction status, unspecified eye (ICD-10) S/P total left hip arthroplasty ?Z96.642 - Presence of left artificial hip joint (ICD-10) 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 His is disabled by severe lymphedema. Her son is being treated for stage IV cancer of the tongue and throat. He quit smoking in 2001 with a 52 pack-year history. He drinks about 1 L of whiskey per week. Code status is full. His Eloisa is healthcare power of civil litigation attorney What is your current living situation?: I presently have a place to live Problems where you live: no known problems Problems where you live details: N/A In the past 12 months, utilities in danger of being shut off: no In past 12 months, lack of transportation kept you from medical appts, meetings, work, or getting things needed for daily living: no In the past 12 mos, have been you worried that your food would run out before you had money to buy more?: never true In the past 12 mos, the food you bought just didn't last and you didn't have money to buy more?: never true Highest level of school completed/degree received: Bachelor's degree Smoking Status: Former smoker Do you use any of these nicotine containing products: None How often do you have a drink containing alcohol: 2-4 times a month How many standard drinks containing alcohol do you have on a typical day: 3 or 4 How often do you have six or more drinks on one occasion: Never AUDIT-C Alcohol total score: 3 Non-prescribed substance use: denies use Caffeine: Yes How often does anyone, including family, friends and others, physically hurt you: never How often does anyone, including family, friends and others, insult or talk down to you: never How often does anyone, including family, friends and others, threaten you with harm: never How often does anyone, including family, friends and others, scream or curse at you: never service: Yes Meds Home Medications and Allergies Home Medications ?Medication ?Instructions ?Recorded ?Confirmed ?Type atorvastatin 40 mg tablet 40 mg PO DAILY 02/07/24 03/25/25 History finasteride 5 mg tablet 5 mg PO DAILY 02/07/24 03/25/25 History metoprolol succinate 25 mg 25 mg PO DAILY 02/07/24 03/25/25 History tablet,extended release 24 hr omeprazole 20 mg capsule,delayed 20 mg PO DAILY 02/07/24 03/25/25 History release tamsulosin 0.4 mg capsule 0.8 mg PO DAILY 02/07/24 03/25/25 History acetaminophen 650 mg 1,300 mg PO BID 09/21/24 03/25/25 History tablet,extended release (8 Hour Pain Reliever) apixaban 2.5 mg tablet (Eliquis) 2.5 mg PO BID 09/21/24 03/25/25 History lisinopril 2.5 mg tablet 2.5 mg PO DAILY 09/21/24 03/25/25 History multivitamin with folic acid 400 1 tab PO DAILY #30 tabs 09/23/24 03/25/25 Rx mcg tablet (Thera) thiamine mononitrate (vit B1) 100 100 mg PO DAILY #30 tabs 09/23/24 03/25/25 Rx mg tablet (Vitamin B-1 (mononitrate)) allopurinol 100 mg tablet 200 mg PO DAILY 03/25/25 03/25/25 History donepezil 5 mg tablet 5 mg PO HS 03/25/25 03/25/25 History Allergies Allergy/AdvReac Type Severity Reaction Status Date / Time No Known Drug Allergies Allergy Verified 03/25/25 08:27 Exam Narrative: Exam Narrative: General: No acute distress. Awake alert oriented to x3 and situation but does ask questions repeatedly in the conversation. Thin, frail. HEENT: Normocephalic atraumatic, pupils equally round and reactive to light and accommodation. Oropharynx clear. Mucous membranes are moist. No cervical lymphadenopathy, thyromegaly or carotid bruits. No JVD. Cardiovascular: Regular rate and rhythm. No murmurs, gallops, or rubs. Chest: No increased work of breathing. Clear to auscultation bilaterally. No crackles or wheezes. Abdomen: Bowel sounds present. Soft, nondistended, mildly tender in the left lower quadrant, no rebound tenderness or guarding. No hepatosplenomegaly or masses. Extremities: No edema, no cyanosis or clubbing. Skin: No jaundice, no pallor, no rashes. Neuro: Grossly intact. No focal deficits. Const: Vital Signs, click to edit/add: Vital Signs - 24 hr 03/25/25 08:29 03/25/25 09:56 03/25/25 10:00 Temperature 97.3 F L Pulse Rate 79 76 Pulse Rate [Pulse Oximeter] 98 Respiratory Rate 20 Blood Pressure Blood Pressure [Le ft Arm] Blood Pressure [Ri ght Upper Arm] 116/73 Pulse Oximetry 100 98 98 Oxygen Delivery Me thod Room Air 03/25/25 10:02 03/25/25 10:03 03/25/25 13:15 Temperature 97.4 F L Pulse Rate 75 72 Pulse Rate [Pulse Oximeter] 87 Respiratory Rate 18 Blood Pressure 118/66 Blood Pressure [Le ft Arm] Blood Pressure [Ri ght Upper Arm] 134/77 Pulse Oximetry 97 100 100 Oxygen Delivery Me thod Room Air 03/25/25 15:03 03/25/25 15:24 Temperature 97.6 F 98.6 F Pulse Rate Pulse Rate [Pulse Oximeter] 85 78 Respiratory Rate 16 16 Blood Pressure Blood Pressure [Le ft Arm] 135/77 136/63 Blood Pressure [Ri ght Upper Arm] Pulse Oximetry 100 100 Oxygen Delivery Me thod Room Air Room Air Hospitalist - H&P: Result Labs Labs: Short CBC 03/25/25 Range/Units 09:40 WBC 10.10 (4.50-11.00) K/uL Hgb 12.4 L (13.5-17.5) gm/dL Hct 36.8 L (37.0-53.0) % Plt Count 260 (140-440) K/uL BMP 03/25/25 09:40 Sodium 132 L Potassium 4.0 Chloride 101 Carbon Dioxide 24 BUN 18 Creatinine 0.8 Glucose 129 H Calcium 9.7 Liver Function 03/25/25 Range/Units 09:40 Total Bilirubin 0.5 (0.1-1.5) mg/dL AST 31 (12-35) U/L ALT 26 (4-50) U/L Alkaline Phosphatase 71 (40-150) U/L Albumin 4.2 (3.3-5.0) g/dL 03/25/2025 EKG: Sinus rhythm with premature atrial complexes, right bundle-branch block, 79 beats per minute. Ordering Physician: Butch Nava M.D. Date of Service: 03/25/25 Procedure(s): CT abdomen pelvis w con Accession Number(s): [id number] cc: Lloyd Barry M.D.; Butch Nava M.D.~ For Patients: As a result of the Cures Act, medical imaging exams and procedure reports are released immediately into your electronic medical record. You may view this report before your referring provider. If you have questions, please contact your health care provider. INDICATION: Diarrhea, left lower quadrant pain, weight loss. COMPARISON: 09/01/2024, 06/15/2019, 06/04/2017 TECHNIQUE: CT of the abdomen and pelvis with intravenous contrast. Multiplanar axial, coronal, and sagittal reformats were reconstructed. Metal artifact reduction technology was utilized to reconstruct axial images of the pelvis. Contrast: 57 mL Isovue 370. FINDINGS: Lung bases: Left lower lobe paraseptal and centrilobular emphysema. Reticular opacities in the dependent right lung. Overall the appearance of the lung bases is improved since the prior abdominal CT. Granuloma in the right lower lobe. No acute appearing lung findings. Liver: Normal. No mass. Gallbladder and bile ducts: Normal gallbladder. No bile duct dilation. Pancreas: There is a 1.2 x 1.3 centimeter cystic lesion arising from the anterior inferior uncinate process. See series 2, image 58. Measured about 1.1 x 0.8 cm in 2019. No pancreatitis. The pancreatic duct is not dilated. Spleen: Normal spleen size and enhancement. Adrenal glands: Normal. Kidneys: Normal overall renal size and position. Normal symmetric renal parenchymal enhancement. No cyst or solid mass. No calculi. No urinary tract dilation. Urinary bladder: Partially distended and normal. Pelvis: No cyst or mass. Vessels: Severe atherosclerosis. There is a partially thrombosed infrarenal abdominal aortic aneurysm that measures 3 centimeters in diameter on series 4, image 65. Due to the tortuosity, axial images are not reliable. Very minimal enlargement since 2019 without substantial change since 09/21/2024. severe stenosis at the origin of the SMA. There is additional at least moderate stenosis at the distal mesenteric branches of the SMA with atherosclerosis extending well out into the mesenteric branches. The inferior mesenteric artery maybe almost completely occluded at its origin. Bowel: There is a focally inflamed diverticulum in the distal descending colon. There is some adjacent colonic wall thickening. No abscess or collection. See series 2 images [id number] and series 4, image 60. Otherwise normal bowel wall thickness and enhancement. No pneumatosis. The appendix is not discretely seen. The cecum is in the right upper quadrant anteriorly. No volvulus. There are several colonic diverticuli. Mild stool burden. Lymph nodes: No adenopathy. Peritoneum: No ascites. Abdominal wall: No hernia. Decreased subcutaneous fat deposition. Bones: Left hip arthroplasty. No focal worrisome bone lesions. IMPRESSION: 1. Acute diverticulitis of the descending colon. Adjacent colonic wall thickening raises the possibility of a mass. Consider colonoscopy after resolution of the current clinical symptoms if not recently performed. 2. Severe atherosclerosis. 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 No acute mesenteric ischemia. 3. Infrarenal abdominal aortic aneurysm measures 3 cm. No change since recent prior exams. 4. There is a 1.2 x 1.3 centimeter cystic lesion arising from the anterior inferior pancreas. This has been present since at least 2019 but has grown. The ACR incidental findings white paper does not specifically address recommended follow-up for patient this age. Depending on patient preference, can consider better characterization with MR abdomen without and with IV contrast pancreas protocol. Please note that all CT scans at this facility use dose modulation, iterative reconstruction, and/or weight-based dosing when appropriate to reduce radiation dose to as low as reasonably achievable. Dictated by Jaki Perez MD @ 03/25/2025 10:57:32 AM (Electronically Signed)
[2025-03-25] MEDS: AMOXICILLIN/CLAVULANATE 500 mg/125 mg TABLET PO ×2 (17:15→21:03)
[2025-03-25 17:24] LABS: C.Difficile Negative (Negative); CDIFFEPI 027 PRESUMPTIVE NEGATIVE (Negative)
[2025-03-25] MEDS: ACETAMINOPHEN 650 MG TABLET ER 1300 MG PO (21:03)
[2025-03-25] MEDS: APIXABAN 5 MG TABLET 2.5 MG PO (21:03)
[2025-03-25] MEDS: DONEPEZIL 5 MG TABLET PO (21:03)
[2025-03-25] MEDS: SODIUM CHLORIDE 0.9 % (FLUSH) 10 ML SYRINGE 5 ML IVF (21:04)
--- NOTE | 2025-03-25 23:27 | PC.NURSE ---
Patient alert and oriented x4. Continues to have loose stools. No blood noted in stool. Patient able to communicate needs. Vital signs WNL.
[2025-03-26 03:23] VITALS: BP 110/67; PULSE 87; RESP 16; TEMP 36.4; O2SAT 97
--- NOTE | 2025-03-26 06:26 | PC.NURSE ---
Shift note (0400-1229): Patient pleasant, alert and oriented. Ambulates with a cane and stand by assist.?Denied pain. Was up to the bathroom this morning; has otherwise been in bed all shift. One continent loose stool this morning.?
[2025-03-26 06:43] LABS: Hematocrit 33.9 % (37.0-53.0); Hemoglobin* 11.3 gm/dL (13.5-17.5); Immature Granulocytes Abs Auto 0.01 K/uL (0.00-0.30); Immature Granulocytes Pct Auto 0.1 %; Lymphocytes Absolute Auto 2.70 K/uL (0.90-2.90); Mean Corpuscular HGB Conc 33 gm/dL (32-36); Mean Corpuscular Hemoglobin 34 pg (26-34); Mean Corpuscular Volume 101 fL (80-100); RDW Coefficient of Variation % 12.9 % (11.5-15.5); Red Blood Count 3.37 m/uL (4.30-5.90); White Blood Count* 7.00 K/uL (4.50-11.00)
[2025-03-26 06:45] LABS: Slide Review Reflex No
[2025-03-26 06:54] LABS: Chloride* 107 mmol/L (96-114); Potassium* 3.9 mmol/L (3.6-5.1); Sodium* 134 mmol/L (135-149)
[2025-03-26 06:58] LABS: Anion Gap 5 mEq/L (7-15); Blood Urea Nitrogen* 14 mg/dL (7-30); Calcium* 9.2 mg/dL (8.4-10.6); Carbon Dioxide* 22 mmol/L (20-32); Creatinine* 0.7 mg/dL (0.5-1.5); Est. Creatinine Clearance* 38.04; Estimated Glomerular Filt Rate 88 ml/min; Glucose* 91 mg/dL (60-115)
[2025-03-26 07:00] VITALS: BP 101/51; PULSE 81; RESP 16; RESP 18; TEMP 36.6; O2SAT 97
[2025-03-26] MEDS: OMEPRAZOLE 20 MG CAPSULE DR PO (10:08)
[2025-03-26] MEDS: METOPROLOL SUCCINATE (XL) 25 MG TAB PO (10:08)
[2025-03-26] MEDS: THIAMINE 100 MG TABLET PO (10:08)
[2025-03-26] MEDS: APIXABAN 5 MG TABLET 2.5 MG PO (10:08)
[2025-03-26] MEDS: ATORVASTATIN CALCIUM 40 MG TABLET PO (10:08)
[2025-03-26] MEDS: TAMSULOSIN HCL 0.4 MG CAPSULE 0.8 MG PO (10:09)
[2025-03-26] MEDS: ACETAMINOPHEN 650 MG TABLET ER 1300 MG PO (10:09)
[2025-03-26] MEDS: AMOXICILLIN/CLAVULANATE 500 mg/125 mg TABLET PO (10:09)
[2025-03-26] MEDS: FINASTERIDE 5 MG TABLET PO (10:14)
--- NOTE | 2025-03-26 12:33 | PM.DS1 ---
DS: Providers Provider Date Seen: 03/26/25 Date of admission: 03/25/25 14:32 Primary care physician: Lloyd Barry MD Admitting Clinician: Debo Gonzalez PA-C Consults: 03/25/25 16:36 Consult to Nutrition [CONS] Routine Comment: Reason for consult:: Weight Loss Consult to Occupational Therapy [CONS] Routine Comment: Reason(s) for OT Consult:: Evaluate and Treat Any Restrictions?:: No Restrictions Consult to Physical Therapy [CONS] Routine Comment: Reason(s) for PT Consult:: Evaluate and Treat Any Restrictions?:: No Restrictions Consult to Blooming Mill Supervisor [CONS] Routine Comment: Reason for Consult:: Social Service Consult Attending Physician on discharge: Mike Scanlon MD Date of Discharge: 03/26/25 DS: Diagnosis Discharge Diagnosis (1) Diverticulitis: Status: Acute Problem details: - Persistent symptoms over 7-10 days. Admitted for observation and started oral augmentin. CT scan showed thickened colon near diverticulitis, patient had colonoscopy just 3 months ago, so I think another would likely not be helpful at this point, and at his age the risk outweighs the benefit. - check for C diff. with stool sample and was negative - He does not appear dehydrated, and has h/o CHF - low fiber diet (2) Weakness: Status: Acute Problem details: - PT and OT consults (3) Lesion of pancreas: Status: Acute Problem details: - Will need outpatient f/u with goals of care discussion and possibly further pancreatic imaging and even biopsy. (4) Dehydration: Status: Acute (5) Acute hyponatremia: Status: Acute Problem details: mild, asymptomatic. Monitor. (6) Memory change: Status: Acute Problem details: OT consult - MOCA again , same as when tested in September 2024. is now aware of recommendation that patient should not drive. Additionally, recommended outpatient occupational therapy driver manager's assessment and follow-up with primary care physician (7) Malnutrition: Status: Acute Problem details: H/o malnutrition/weight loss: 08/2024 - Patient estimates weight loss of 50 lb over the past year. Medical records indicate about 10 kg of weight loss during that time. - 03/25/25 severe protein calorie malnutrition, alcohol use and pancreatic lesion possibly contributing. wt now 55kg, down another 8 kg from August. Start nutritional supplementation, recommended abstaining from EtOH, nutrition consult. (8) Alcohol use disorder: Status: Chronic Problem details: Initiated [facility] protocol for assessment, which was never triggered while in hospital. Advised abstinence. 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 He denies fever, but does feel chilled. He thought he had been on antibiotics for this recently, but I reviewed his [facility] records and find no evidence of this. His , Eloisa, confirms that he has not been on any antibiotics recently. He does not recall having a colonoscopy recently. He also does not recall his primary care provider recently told him to stop driving. He drove himself to the ER. His watches him set up his medications and take them at home, but states that he is still doing well with that task on his own. She notes that his memory has gotten progressively worse over the last few months and she has asked his primary care doctor to do some testing for that. She did have an incident recently where she left him alone for a while with a lot of food in the house, but when she got back he had not eaten much and a lot of the food had gone bad. She said that she realizes now that his dementia is bad enough that she can no longer leave him alone like that. She also described an incident between him and her son who is living with them. This happened when she was not home and apparently Anatoly called the police on her son, and her son was taken into custody overnight. He is now back in the house and things are going well. There have been no other incidents like that. She was also not aware that he was told that he should no longer drive. Abdominal discomfort and diarrhea resolved in great measure. Stool for C diff is negative. Tolerating oral intake. Tolerating increased activities. Occupational therapy tested his MOCA and again he scored 28/30, the same as he scored in September 2024, unchanged. Able to engage in meaningful conversation without apparent difficulties. Time Spent with Patient Time attestation: Total time spent providing and/or coordinating discharge services: Exam Narrative: Exam Narrative: General: No acute distress. Awake alert oriented to x3 and situation, very hard of hearing and does repeat questions at times to clarify. Thin, frail. HEENT: Normocephalic atraumatic, pupils equally round and reactive to light and accommodation. Oropharynx clear. Mucous membranes are moist. No cervical lymphadenopathy, thyromegaly or carotid bruits. No JVD. Cardiovascular: Regular rate and rhythm. No murmurs, gallops, or rubs. Chest: No increased work of breathing. Clear to auscultation bilaterally. No crackles or wheezes. Abdomen: Bowel sounds present. Soft, nondistended, mildly tender in the left lower quadrant, no rebound tenderness or guarding. No hepatosplenomegaly or masses. Extremities: No edema, no cyanosis or clubbing. Skin: No jaundice, no pallor, no rashes. Neuro: Grossly intact. No focal deficits. Const: Vital Signs, click to edit/add: Vital Signs - 24 hr 03/25/25 13:15 03/25/25 15:03 03/25/25 15:24 Temperature 97.4 F L 97.6 F 98.6 F Pulse Rate [Pulse Oximeter] 87 85 78 Respiratory Rate 18 16 16 Blood Pressure [Le ft Arm] 135/77 136/63 Blood Pressure [Ri ght Upper Arm] 134/77 Pulse Oximetry 100 100 100 Oxygen Delivery Tn thod Room Air Room Air Room Air 03/25/25 19:00 03/25/25 19:43 03/25/25 23:03 Temperature 98.9 F 98.9 F Pulse Rate [Pulse Oximeter] 88 88 Respiratory Rate 16 16 17 Blood Pressure [Le ft Arm] 115/59 L 115/59 L Blood Pressure [Ri ght Upper Arm] Pulse Oximetry 100 100 96 Oxygen Delivery Tn thod Room Air Room Air Room Air 03/25/25 23:03 03/26/25 03:23 03/26/25 07:00 Temperature 97.8 F 97.5 F L Pulse Rate [Pulse Oximeter] 84 87 81 Respiratory Rate 17 16 16 Blood Pressure [Le ft Arm] 119/64 110/67 Blood Pressure [Ri ght Upper Arm] Pulse Oximetry 96 97 Oxygen Delivery Tn thod Room Air Room Air 03/26/25 07:00 03/26/25 07:00 Temperature 97.9 F Pulse Rate [Pulse Oximeter] 81 Respiratory Rate 18 18 Blood Pressure [Le ft Arm] 101/51 L Blood Pressure [Ri ght Upper Arm] Pulse Oximetry 97 97 Oxygen Delivery Me thod Room Air Room Air DS: Data Data Completed and Pending Completed studies during hospitalization: Procedures Inspection of Upper Intestinal Tract, Via Natural or Artificial Opening Endoscopic (09/21/24) Transfusion of Nonautologous Red Blood Cells into Peripheral Vein, Percutaneous Approach (09/21/24) Labs on day of discharge: Labs from last 24 hours 03/26/25 03/25/25 05:53 16:22 WBC 7.00 RBC 3.37 L Hgb 11.3 L Hct 33.9 L MCV 101 H MCH 34 MCHC 33 RDW Coeff of Skylar 12.9 Plt Count 247 Neut % (Auto) 45.1 Lymph % (Auto) 38.6 Zavala % (Auto) 11.9 H Eos % (Auto) 3.7 Baso % (Auto) 0.6 Neut # (Auto) 3.16 Lymph # (Auto) 2.70 Zavala # (Auto) 0.80 Eos # (Auto) 0.26 Baso # (Auto) 0.04 Abs Immat Gran (auto) 0.01 Imm/Tot Granulo (auto) 0.1 Sodium 134 L Potassium 3.9 Chloride 107 Carbon Dioxide 22 Anion Gap 5 L BUN 14 Creatinine 0.7 Estimated Creat Clear 38.04 Estimated GFR 88 Glucose 91 Calcium 9.2 C-Reactive Protein 1.1 H Stl C. diff Tox B Gene Negative Stl C. diff [id number] PRESUMPTIVE NEGATIVE Imaging CT scan - abdomen: Attestation: I have reviewed the pertinent imaging results. Radiologist's impression: IMPRESSION: 1. Acute diverticulitis of the descending colon. Adjacent colonic wall thickening raises the possibility of a mass. Consider colonoscopy after resolution of the current clinical symptoms if not recently performed. 2. Severe atherosclerosis. 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 No acute mesenteric ischemia. 3. Infrarenal abdominal aortic aneurysm measures 3 cm. No change since recent prior exams. 4. There is a 1.2 x 1.3 centimeter cystic lesion arising from the anterior inferior pancreas. This has been present since at least 2019 but has grown. The ACR incidental findings white paper does not specifically address recommended follow-up for patient this age. Depending on patient preference, can consider better characterization with MR abdomen without and with IV contrast pancreas protocol. Discharge Plan Discharge Disposition: Home, Self-Care Date of Admission: 03/25/25 14:32 Attending Provider on Discharge: Mike Scanlon Primary Care Provider: Lloyd Barry Condition: Improved Anticipated Discharge Date/Time: 03/26/25 12:30 Discharge Medications: New amoxicillin-pot clavulanate 875-125 mg tablet 1 tab PO BID Qty: 20 0RF Continued finasteride 5 mg tablet 5 mg PO DAILY atorvastatin 40 mg tablet 40 mg PO DAILY metoprolol succinate 25 mg tablet extended release 24 hr 25 mg PO DAILY tamsulosin 0.4 mg capsule 0.8 mg PO DAILY omeprazole 20 mg capsule,delayed release(DR/EC) 20 mg PO DAILY lisinopril 2.5 mg tablet 2.5 mg PO DAILY Eliquis 2.5 mg tablet 2.5 mg PO BID acetaminophen [8 Hour Pain Reliever] 650 mg tablet extended release 1,300 mg PO BID thiamine mononitrate (vit B1) [Vitamin B-1 (mononitrate)] 100 mg Tablet 100 mg PO DAILY Qty: 30 0RF multivitamin with folic acid [Thera] 400 mcg Tablet 1 tab PO DAILY Qty: 30 0RF donepezil 5 mg tablet 5 mg PO HS allopurinol 100 mg tablet 200 mg PO DAILY Discharge Orders: Discharge Order (Routine); Ordered 03/26/25 Ordered By: Mike Scanlon Patient Education: Amoxicillin (By mouth), Diverticulitis (DC) Additional Instructions: 1. Outpatient Occupational Therapy Metal Wire Technician's Assessment in next 5-10 days 2. Follow-up with primary care physician after completion of Metal Wire Technician's assessment Activity Level: Activity as Tolerated Discharge Diet: Regular and Low Fiber Follow Up Appointments: Lloyd Barry MD [Primary Care Provider, Family Practice] Forms: Patient Belongings, [facility] Info Instructions
--- NOTE | 2025-03-26 14:08 | PC.NURSE ---
Nursing Care Hours: [id number] Pt this shift calm and cooperative, alert and oriented. No c/o pain. Increased appetite for breakfast. VSS. IV removed for discharge, pt wheeled out to vehicle in stable condition. All forms signed.
== END 2025-03-26 12:15 | disposition home or self-care (01) ==
LOC: ED 13:27 → MEDSURG 14:34
PROVIDERS: Family Medicine; Admitting Provider Family Medicine; Emergency Provider Emergency Medicine; PCP Family Medicine; Visit Provider Family Medicine
DX: K57.32 Diverticulitis of large intestine without perforation or abscess without bleeding (principal); F10.10 Alcohol abuse, uncomplicated; E87.1 Hypo-osmolality and hyponatremia; E43 Unspecified severe protein-calorie malnutrition; K86.89 Other specified diseases of pancreas; R53.1 Weakness; R41.89 Other symptoms and signs involving cognitive functions and awareness
CPT/HCPCS: 36415; 74177; 80048; 80053; 82077; 84443; 85025; 85610; 86140; 87045; 87046; 87427; 87493; 97161; 97165; 97530; 97535; 99283; 99285; A9270; G0378; J7030; Q9967